=== PATIENT | male | born 1945 ===

== ENCOUNTER 2018-03-06 12:09 | Inpatient (IN) | payer MEDICAID, SELFPAY ==
[2018-03-06 12:09] VITALS: BMI 28.5
--- NOTE | 2018-03-06 12:41 | ED PDOC ---
HPI: Chest Pain Time Seen by Provider: 03/06/18 12:26 Chief Complaint (Nursing): Chest Pain History Per: Patient Onset/Duration Of Symptoms: Days (2) Current Symptoms Are (Timing): Intermittent Episodes Severity: Mild Additional Complaint(s): Chest pain assoc with hemoptysis since yesterday. Denies fever or SOB. No leg pain or swelling. Neuroendocrine Ca of vocal cords. Denies sore throat or difficulty swallowing. Vocal cord tumor resected but no chemo or radiation. 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) - Family History Family History: States: Unknown Family Hx - Home Medications Home Medications: Ambulatory Orders Medication Instructions Recorded Aspirin [Adult Low Dose Aspirin EC] 81 mg PO DAILY 08/19/16 Travoprost [Travatan Z] 1 drop OS HS 08/19/16 amLODIPine [Norvasc] 5 mg PO HS 08/19/16 - Allergies Allergies/Adverse Reactions: Allergies Allergy/AdvReac Type Severity Reaction Status Date / Time No Known Allergies Allergy Verified 08/19/16 07:33 Review of Systems ROS Statement: Except As Marked, All Systems Reviewed And Found Negative Constitutional: Negative for: Fever Cardiovascular: Positive for: Chest Pain Respiratory: Positive for: Cough, Hemoptysis. Negative for: Shortness of Breath Musculoskeletal: Negative for: Leg Pain Physical Exam - Reviewed Nursing Documentation Reviewed: Yes Vital Signs Reviewed: Yes - Physical Exam Appears: Positive for: Non-toxic, No Acute Distress Head Exam: Positive for: ATRAUMATIC, NORMAL INSPECTION, NORMOCEPHALIC Skin: Positive for: Normal Color, Warm, DRY Eye Exam: Positive for: EOMI, Normal appearance, PERRL ENT: Positive for: Normal ENT Inspection, Other (Throat no swelling or bleeding) Neck: Positive for: Normal, Painless ROM Cardiovascular/Chest: Positive for: Regular Rate, Rhythm Respiratory: Positive for: CNT, Normal Breath Sounds Gastrointestinal/Abdominal: Positive for: Normal Exam, Soft Back: Positive for: Normal Inspection Extremity: Positive for: Normal ROM Neurologic/Psych: Positive for: Alert, Oriented - Laboratory Results Result Diagrams: 03/06/18 13:06 03/06/18 13:06 - ECG O2 Sat by Pulse Oximetry: 96 Medical Decision Making Medical Decision Making: Discussed with Dr. Elmore Navigation Officer. Recommends admission as pt is at risk for ruture of tracheal mass, has already had hemoptysis. Will schedule for bronchoscopy thursday. Disposition - Clinical Impression Clinical Impression: Tracheal mass - Patient ED Disposition Is Patient to be Admitted: Yes - Disposition Disposition Time: 16:06 Condition: FAIR Forms: [employer] ([place]) - Pt Status Changed To: Hospital Disposition Of: Inpatient - Admit Certification Admit to Inpatient:: After my assessment, the patient will require hospitalization for at least two midnights. This is because of the severity of symptoms shown, intensity of services needed, and/or the medical risk in this patient being treated as an outpatient. - POA Present On Arrival: None
[2018-03-06 13:22] LABS: BASO # 0.1 K/uL (0.0-0.2); BASO % 0.8 % (0.0-2.0); EOS # 0.2 K/uL (0.0-0.7); EOS % 1.8 % (0.0-4.0); HEMOGLOBIN 14.4 g/dL (12.0-18.0); LYMPH # 2.1 K/uL (1.0-4.3); LYMPH % 20.4 % (20.0-40.0); MEAN CELL VOLUME 89.6 fl (80.0-94.0); MEAN CORPUSCULAR HEMOGLOBIN 29.7 pg (27.0-31.0); MEAN CORPUSCULAR HGB CONC 33.1 g/dL (33.0-37.0); MEAN PLATELET VOLUME 9.5 fl (7.2-11.7); MONO # 0.9 K/uL (0.0-0.8); MONO % 8.7 % (0.0-10.0); NEUT # 6.9 K/uL (1.8-7.0); NEUT % 68.3 % (50.0-75.0); RBC 4.84 Mil/uL (4.40-5.90); RED CELL DISTRIBUTION WIDTH 14.5 % (11.5-14.5); WHITE BLOOD COUNT 10.1 K/uL (4.8-10.8)
[2018-03-06 13:31] LABS: ALB/GLOB RATIO 1.1 (1.0-2.1); ALT/SGPT 22 U/L (21-72); AST/SGOT 19 U/L (17-59); BLOOD UREA NITROGEN 19 mg/dl (9-20); CALCIUM 8.9 mg/dL (8.4-10.2); GFR AFRICAN-AMERICAN > 60; GFR NON-AFRICAN AMERICAN > 60
[2018-03-06 13:33] LABS: INR 1.1 (0.9-1.2)
[2018-03-06] MEDS ORDERED: Iodixanol 320 MG/ML 100 ML BOTTLE IV ONE (14:30)
--- NOTE | 2018-03-06 15:41 | CT ---
PROCEDURE: CT Chest with contrast (Pulmonary Angiogram) HISTORY: hemoptysis vocal cord Ca COMPARISON: None available. 07/02/2016 TECHNIQUE: Axial computed tomography images were obtained of the chest in the pulmonary arterial phase of enhancement. Coronal and sagittal reformatted images were created and reviewed. Intravenous contrast dose: Radiation dose: Total exam DLP = mGy-cm. This CT exam was performed using one or more of the following dose reduction techniques: Automated exposure control, adjustment of the mA and/or kV according to patient size, and/or use of iterative reconstruction technique. FINDINGS: PULMONARY ARTERIES: Unremarkable. No pulmonary embolism. AORTA: No acute findings. No thoracic aortic aneurysm. LUNGS: 3 millimeter juxtapleural nodule along the right upper lobe, unchanged. . No mass or pulmonary consolidation. PLEURAL SPACES: Unremarkable. No effusion or pneuomothorax. HEART: Unremarkable. No cardiomegaly. No significant pericardial effusion. LYMPH NODES: No lymphadenopathy. 12 millimeter mass along the anterior wall of the trachea possibly representing a tracheal polyp or neoplasm; recommend correlation with bronchoscopy. BONES, CHEST WALL: Unremarkable. No fracture or destructive lesion OTHER FINDINGS: 12 millimeter are IMPRESSION: 12 millimeter mass along the anterior wall of the trachea possibly representing a tracheal polyp or neoplasm; recommend correlation with bronchoscopy.
--- NOTE | 2018-03-06 16:40 | CP.PCM.HP ---
History of Present Illness - History of Present Illness History of Present Illness: 72 yo ,m, PMhx/o Neuroendocrine vocal cords Ca s/p resection 5 years ago w/o chemo or radiotherapy in [facility], HTN, BPH, HLD presents c/o one episode of hemoptysis started yesterday noticed after persistent cough associated with central chest pain that lasted 5 minutes. . Patient spitted out small amount red blood and a clot. He reports 4 episodes of mild hemoptysis during the last month and reports a chronic dry cough intermittent for the last 5 months. Patient denies fever, SOB, n,v,d abd pain, dysuria, hematuria, fatigue, weight loss, anorexia. Patient reports that ENT in [facility] only recommended surgery for vocal cord tumor and not chemo or radiotherapy. Patient reports he was seen by ENT in [place] 2 years ago and was told to have f/u every year but he did not go. Patient seen in clinic 09/[address] Blanco and referred to [facility] but patient did not go. On evaluation in ED patient in not acute distress, not active bleeding, reports hemoptysis and chest pain was yesterday and it subsided. PMD: [facility]. Dr Blanco. Last seen 09/2017 PMH: Neuroendocrine vocal cords Ca s/p resection 5 years ago w/o chemo or radiotherapy in [facility], HTN, BPH, HLD Allergies: NKDA Meds: Amlodipine 5 mg daily. Travatan eye drops. (Atorvastatin 20 daily, Tamsulosin 0.4 mg reports not taking) refill given 09/2017 PSurghx: Vocald Cord CA resection PSHX: former smoker x 20 years 2 PPD. Quit 10 years ago. Denies rect drugs, ETOH Code status: full code ED Course Vitals: normal Labs: CBC, CMP normal Imaging: CXR: no infiltrates, pneumothorax. CT Chest: 12 mm mass along the anterior wall of the trachea possible representing a tracheal polyp or neoplasm. 3 mm RUL nodule, no mass, no consolidation. No PE. Recommend correlation with bronchoscopy. -D/w pulmonology Dr Elmore. Will have bronchoscopy on Thursday EKG: sinus tomas, sinus arrhtymia. HR: 53 Meds: None Present on Admission - Present on Admission Any Indicators Present on Admission: No History of DVT/PE: No History of Uncontrolled Diabetes: No Urinary Catheter: No Decubitus Ulcer Present: No Review of Systems - Review of Systems All systems: reviewed and no additional remarkable complaints except - Cardiovascular Cardiovascular: Chest Pain - Gastrointestinal Gastrointestinal: As Per HPI - Neurological Neurological: As Per HPI Past Patient History - Past Medical History & Family History Past Medical History?: Yes - Past Social History Smoking Status: Former Smoker - CARDIAC Hx Cardiac Disorders: Yes - PULMONARY Hx Respiratory Disorders: No - NEUROLOGICAL Hx Neurological Disorder: No - HEENT Hx HEENT Problems: No - RENAL Hx Chronic Kidney Disease: No - ENDOCRINE/METABOLIC Hx Endocrine Disorders: Yes - HEMATOLOGICAL/ONCOLOGICAL Hx Blood Disorders: No - INTEGUMENTARY Hx Dermatological Problems: No - MUSCULOSKELETAL/RHEUMATOLOGICAL Hx Musculoskeletal Disorders: No - GASTROINTESTINAL Hx Constipation: Yes - GENITOURINARY/GYNECOLOGICAL Hx Genitourinary Disorders: No - PSYCHIATRIC Hx Psychophysiologic Disorder: No - SURGICAL HISTORY Other/Comment: cardiac cath. Laryngeal bx 2013 - ANESTHESIA Hx Anesthesia: Yes Hx Anesthesia Reactions: No Hx Malignant Hyperthermia: No Meds Allergies/Adverse Reactions: Allergies Allergy/AdvReac Type Severity Reaction Status Date / Time No Known Allergies Allergy Verified 08/19/16 07:33 Physical Exam - Constitutional Appears: Non-toxic, No Acute Distress - Head Exam Head Exam: NORMAL INSPECTION, NORMOCEPHALIC - Eye Exam Eye Exam: Normal appearance, PERRL - ENT Exam ENT Exam: Mucous Membranes Moist, Normal Oropharynx - Neck Exam Neck exam: Positive for: Normal Inspection. Negative for: Lymphadenopathy, Thyromegaly - Respiratory Exam Respiratory Exam: Clear to Auscultation Bilateral. absent: Rales, Rhonchi, Wheezes - Cardiovascular Exam Cardiovascular Exam: REGULAR RHYTHM, +S1, +S2 - GI/Abdominal Exam GI & Abdominal Exam: Normal Bowel Sounds, Soft. absent: Tenderness - Extremities Exam Extremities exam: Positive for: normal inspection. Negative for: pedal edema - Back Exam Back exam: NORMAL INSPECTION - Neurological Exam Neurological exam: Alert, Oriented x3 - Psychiatric Exam Psychiatric exam: Normal Affect, Normal Mood - Skin Skin Exam: Intact Results - Vital Signs Recent Vital Signs: Last Vital Signs Temp 98.6 F 03/06/18 12:16 Pulse 60 03/06/18 12:25 Resp 18 03/06/18 12:16 BP 118/82 03/06/18 16:13 Pulse Ox 96 03/06/18 16:06 - Labs Result Diagrams: 03/06/18 13:06 03/06/18 13:06 Labs: Laboratory Results - last 24 hr 03/06/18 03/06/18 03/06/18 13:06 13:06 13:06 WBC 10.1 RBC 4.84 Hgb 14.4 Hct 43.4 MCV 89.6 MCH 29.7 MCHC 33.1 RDW 14.5 Plt Count 208 MPV 9.5 Neut % (Auto) 68.3 Lymph % (Auto) 20.4 [place] % (Auto) 8.7 Eos % (Auto) 1.8 Baso % (Auto) 0.8 Neut # (Auto) 6.9 Lymph # (Auto) 2.1 [place] # (Auto) 0.9 H Eos # (Auto) 0.2 Baso # (Auto) 0.1 PT 13.0 INR 1.1 Sodium 142 Potassium 4.3 Chloride 105 Carbon Dioxide 23 Anion Gap 18 BUN 19 Creatinine 1.1 Est GFR ( Amer) > 60 Est GFR (Non-Af Amer) > 60 Random Glucose 90 Calcium 8.9 Total Bilirubin 0.6 AST 19 ALT 22 Alkaline Phosphatase 77 Total Protein 7.6 Albumin 4.0 Globulin 3.6 Albumin/Globulin Ratio 1.1 Assessment & Plan - Assessment and Plan (Free Text) Plan: 72 yo ,m, PMhx/o Neuroendocrine vocal cords Ca s/p resection 5 years ago w/o chemo or radiotherapy in [facility], HTN, BPH, HLD admitted for Hemoptysis, tracheal mass. 1) Hemoptysis -secondary to tracheal mass in patient with PMhx/o vocal cord Ca -reports 4 episodes of hemoptysis in 1 month -labs normal, no anemia, troponin neg -CXR: no infiltrates, pneumothorax Chest CT: 12 mm mass along the anterior wall of the trachea possible representing a tracheal polyp or neoplasm. 3 mm RUL nodule, no mass, no consolidation. No PE. Recommend correlation with bronchoscopy. -D/w pulmonology Dr Elmore. Will have bronchoscopy on Thursday -Hold Aspirin. -PPD ordered in [facility] 09/2017 to r/o TB.patient did not go for reading 2) Tracheal mass -on patient with hx/o vocal cord Ca - Chest CT: 12 mm mass along the anterior wall of the trachea possible representing a tracheal polyp or neoplasm -D/w pulmonology Dr Elmore. Will have bronchoscopy on Thursday 3) Chest pain -only associated with cough and hemoptysis yesterday -asymptomatic in ED -to r/o PE -CT chest: negative for PE -troponin x 1 neg -if chest pain repeats will consider EKG and troponin 4) HTN -controlled c/w home Amlodipine 5 mg daily 5) HLD Last lipid profile reviewed -no taking statin now. -will restart Lipitor 20 mg daily 6) BPH -nocturia 2-3 times day -not taking flomax now -will restart flomax 0,4 mg HS 7) DVT prophylaxis -SCD. hemoptysis. For bronchoscopy on Thursday .
[2018-03-06] MEDS: Latanoprost 0.005% Opht SOUTION OS SCH ×2 (21:14→21:19)
--- NOTE | 2018-03-07 07:38 | RAD ---
HISTORY: chest pain hemoptysis COMPARISON: No prior. TECHNIQUE: Chest PA and lateral FINDINGS: LUNGS: No active pulmonary disease. PLEURA: No significant pleural effusion identified. No pneumothorax apparent. CARDIOVASCULAR: Normal. OSSEOUS STRUCTURES: No significant abnormalities. VISUALIZED UPPER ABDOMEN: Normal. OTHER FINDINGS: None. IMPRESSION: No active disease.
[2018-03-07 10:48] LABS: HEMOGLOBIN 14.5 g/dL (12.0-18.0); MEAN CELL VOLUME 89.1 fl (80.0-94.0); MEAN CORPUSCULAR HEMOGLOBIN 29.8 pg (27.0-31.0); MEAN CORPUSCULAR HGB CONC 33.5 g/dL (33.0-37.0); RBC 4.87 Mil/uL (4.40-5.90); RED CELL DISTRIBUTION WIDTH 14.5 % (11.5-14.5)
--- NOTE | 2018-03-07 13:32 | CP.PCM.PN ---
Subjective - Date & Time of Evaluation Date of Evaluation: 03/07/18 Time of Evaluation: 10:29 - Subjective Subjective: Patient seen and examined with attending at bedside. Patient states he feels well. No acute events overnight except for 1 episode of dark black stool. Patient states this has happened once before 15 days ago, that resolved spontaneously. Patient states cough has improved and no hemoptysis reported. Denies chest pain, sob, palpitations, abdominal pain, n/v/c. No other complaints at this time. Pending bronchoscopy for evaluation of tracheal mass tomorrow. Objective - Vital Signs/Intake and Output Vital Signs (last 24 hours): Temp Pulse Resp BP Pulse Ox 97.6 F 82 18 110/60 98 03/07/18 13:00 03/07/18 13:00 03/07/18 13:00 03/07/18 13:00 03/07/18 13:00 - Medications Medications: Current Medications Acetaminophen (Tylenol 325mg Tab) 650 mg PO Q6 PRN PRN Reason: Pain, Mild (1-3) Acetaminophen (Tylenol 325mg Tab) 650 mg PO Q6 PRN PRN Reason: Fever >100.4 F Amlodipine Besylate (Norvasc) 5 mg PO HS [facility] Last Admin: 03/06/18 21:13 Dose: 5 mg Atorvastatin Calcium (Lipitor) 20 mg PO HS [facility] Last Admin: 03/06/18 21:13 Dose: 20 mg Famotidine (Pepcid) 20 mg PO DAILY SANJEEV Latanoprost (Xalatan Opht) 1 drop OS HS [facility] Last Admin: 03/06/18 21:19 Dose: Not Given - Labs Labs: 03/07/18 10:05 03/06/18 13:06 PT 13.0 Seconds (9.8-13.1) 03/06/18 13:06 INR 1.1 (0.9-1.2) 03/06/18 13:06 - Constitutional Appears: Well, Non-toxic, No Acute Distress - Head Exam Head Exam: ATRAUMATIC, NORMAL INSPECTION, NORMOCEPHALIC - Eye Exam Eye Exam: Normal appearance - ENT Exam ENT Exam: Mucous Membranes Moist - Neck Exam Neck Exam: Normal Inspection - Respiratory Exam Respiratory Exam: Clear to Ausculation Bilateral, NORMAL BREATHING PATTERN. absent: Rales, Rhonchi, Wheezes - Cardiovascular Exam Cardiovascular Exam: REGULAR RHYTHM, +S1, +S2. absent: Murmur - GI/Abdominal Exam GI & Abdominal Exam: Soft, Normal Bowel Sounds. 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 1) Hemoptysis -secondary to tracheal mass in patient with PMhx/o vocal cord Ca -reported 4 episodes of hemoptysis in 1 month -labs normal, no anemia -CXR: no infiltrates, pneumothorax Chest CT: 12 mm mass along the anterior wall of the trachea possible representing a tracheal polyp or neoplasm. 3 mm RUL nodule, no mass, no consolidation. No PE. Recommend correlation with bronchoscopy. -D/w pulmonology Dr Elmore. Will have bronchoscopy on Thursday -Hold Aspirin. -PPD ordered in [facility] 09/2017 to r/o TB.patient did not go for reading -No episodes since admission 2) Tracheal mass -h/o vocal cord Ca s/p resection 5 years ago w/o chemo or radiotherapy -was to f/u with ENT yearly, has not done so in 2 yrs -Chest CT: 12 mm mass along the anterior wall of the trachea possible representing a tracheal polyp or neoplasm -D/w pulmonology Dr Elmore. Will have bronchoscopy on Thursday 3) Melena -x1 episode this am and 1 episode 15 days ago -with hemoptysis episodes in the past month -labs unremarkable, no drop in hgb -will continue to monitor as this may be due to hemoptysis/swallowing blood -will consider GI consult if signs/symptoms worsen 4) Chest pain -Resolved -only associated with cough and hemoptysis yesterday -CT chest: negative for PE -troponin x 1 neg -if chest pain repeats will consider EKG and troponin 5) HTN -controlled c/w home Amlodipine 5 mg daily 6) HLD Last lipid profile reviewed -c/w Lipitor 20 mg daily 7) BPH -symptomatic with nocturia -c/w flomax 0,4 mg HS 8) DVT prophylaxis -SCD due to bronchoscopy on Thursday
[2018-03-07] MEDS ORDERED: Promethazine/Cod 6.25mg-10mg/5ml Syr UD PO PRN (15:11)
[2018-03-07 15:27] LABS: ABG ALLEN TEST YES; ARTERIAL BLOOD GAS HCO3 24.4 mmol/L (21-28); ARTERIAL BLOOD GAS HEMOGLOBIN 14.3 g/dL (11.7-17.4); ARTERIAL BLOOD GAS O2 CAPACITY 19.7 mL/dL (16-24); ARTERIAL BLOOD GAS O2 CONTENT 19.1 ML/dL (15-23); ARTERIAL BLOOD GAS O2 SAT 96.9 % (95-98); ARTERIAL BLOOD GAS PCO2 35 mm/Hg (35-45); ARTERIAL BLOOD GAS PH 7.43 (7.35-7.45); ARTERIAL BLOOD GAS PO2 82 mm/Hg (80-100); ARTERIAL BLOOD GAS TCO2 24.3 mmol/L (22-28)
--- NOTE | 2018-03-07 16:25 | CP.PCM.CON ---
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 He is living [facility] for past 4 yrs. Two yrs ago He was seen by ENT in [facility] and was found with no recurrence of vocal cord CA and was told to return every year for f/u but He did not go. Patient with intermittent dry cough for the past 5 months , He was seen in September [address] Pagan, CXR ordered was negative , He was refered to have f/u with ENT [facility] but He did not go. Patient in the past month had 4 episodes of mild hemoptysis with dry cough, He is AD now with one episode of hemoptysis day prior to admission , described as small amount of bright red blood with small clot , associated with persistant cough and central chest pain. Patient denies fever, shortness of breath, dyspnea on exertion, weight loss , nausea ,vomiting ,diarrhea, abdominal pain, hematemesis, He had yesterday one episode of melanotic stools, but today he describes normal BM. He was smoker for 30 years of 1-3 packs per day. He quit smoking 20 years ago. CTA compared with 07-02-16 : no PE , 3mm nodule yuxtapleural along the RUL unchanged , no mass or pulmonary consolidation. No lymphadenopahy , 12mm mass along the anterior wall of the Trachea possibly representing a tracheal polyp or neoplasm. Review of Systems - Constitutional Constitutional: Other (neg) - EENT Eyes: Other (neg) Nose/Mouth/Throat: Other (neg) - Cardiovascular Cardiovascular: Chest Pain - Respiratory Respiratory: Cough Additional comments: hemoptysis - Gastrointestinal Gastrointestinal: Change in Stool Character (one episode of melanotic stool) - Genitourinary Genitourinary: Other (neg) - Reproductive: Male Reproductive:Male: Other (neg) - Musculoskeletal Musculoskeletal: Other (neg) - Integumentary Integumentary: Other (nrg) - Neurological Neurological: Other (nrg) - Psychiatric Psychiatric: Other (nrg) - Endocrine Endocrine: Other (nrg) - Hematologic/Lymphatic Hematologic: Other (neg) Past Patient History - Past Medical History & Family History Past Medical History?: Yes - Past Social History Smoking Status: Former Smoker Home Situation {Lives}: With Family - CARDIAC Hx Cardiac Disorders: Yes Hx Hypercholesterolemia: Yes Hx Hypertension: Yes - PULMONARY Hx Respiratory Disorders: No - NEUROLOGICAL Hx Neurological Disorder: No - HEENT Hx HEENT Problems: No - RENAL Hx Chronic Kidney Disease: No - ENDOCRINE/METABOLIC Hx Endocrine Disorders: Yes Other/Comment: neuroendocrine vocal cord Ca - HEMATOLOGICAL/ONCOLOGICAL Hx Blood Disorders: No Hx AIDS: No Hx Human Immunodeficiency Virus (HIV): No - INTEGUMENTARY Hx Dermatological Problems: No - MUSCULOSKELETAL/RHEUMATOLOGICAL Hx Musculoskeletal Disorders: No Hx Falls: No - GASTROINTESTINAL Hx Gastrointestinal Disorders: Yes Hx Constipation: Yes - GENITOURINARY/GYNECOLOGICAL Hx Genitourinary Disorders: No - PSYCHIATRIC Hx Psychophysiologic Disorder: No Hx Substance Use: No - SURGICAL HISTORY Hx Surgeries: Yes Other/Comment: cardiac cath. Laryngeal bx 2013 - ANESTHESIA Hx Anesthesia: Yes Hx Anesthesia Reactions: No Hx Malignant Hyperthermia: No Meds Allergies/Adverse Reactions: Allergies Allergy/AdvReac Type Severity Reaction Status Date / Time No Known Allergies Allergy Verified 08/19/16 07:33 - Medications Medications: Current Medications Acetaminophen (Tylenol 325mg Tab) 650 mg PO Q6 PRN PRN Reason: Pain, Mild (1-3) Acetaminophen (Tylenol 325mg Tab) 650 mg PO Q6 PRN PRN Reason: Fever >100.4 F Albuterol/Ipratropium (Duoneb 3 Mg/0.5 Mg (3 Ml) Ud) 3 ml INH RQ6 PRN PRN Reason: Shortness of Breath Atorvastatin Calcium (Lipitor) 20 mg PO HS [facility] Last Admin: 03/06/18 21:13 Dose: 20 mg Famotidine (Pepcid) 20 mg PO DAILY SANJEEV Latanoprost (Xalatan Opht) 1 drop OS HS [facility] Last Admin: 03/06/18 21:19 Dose: Not Given Methylprednisolone (Solu-Medrol) 40 mg IVP Q8H SANJEEV Pantoprazole Sodium (Protonix Ec Tab) 40 mg PO DAILY SANJEEV Promethazine HCl/Codeine (Phenergan/Codeine Oral Syrup) 10 ml PO Q6 PRN PRN Reason: Cough Physical Exam - Constitutional Appears: No Acute Distress - Head Exam Head Exam: NORMAL INSPECTION - Eye Exam Eye Exam: PERRL - ENT Exam ENT Exam: Normal Exam - Neck Exam Neck exam: Positive for: Normal Inspection - Respiratory Exam Respiratory Exam: Rhonchi - Cardiovascular Exam Cardiovascular Exam: REGULAR RHYTHM - GI/Abdominal Exam GI & Abdominal Exam: Normal Bowel Sounds - Extremities Exam Extremities exam: Positive for: normal inspection - Back Exam Back exam: NORMAL INSPECTION - Neurological Exam Neurological exam: Alert, CN II-XII Intact, Oriented x3 - Psychiatric Exam Psychiatric exam: Normal Affect - Skin Skin Exam: Warm Results - Vital Signs Recent Vital Signs: Last Vital Signs Temp 97.6 F 03/07/18 13:00 Pulse 82 03/07/18 13:00 Resp 18 03/07/18 13:00 BP 110/60 03/07/18 13:00 Pulse Ox 98 03/07/18 13:00 - Labs Result Diagrams: 03/07/18 10:05 03/06/18 13:06 Labs: Laboratory Results - last 24 hr 03/06/18 03/07/18 03/07/18 16:20 05:24 10:05 WBC 10.0 RBC 4.87 Hgb 14.5 Hct 43.4 MCV 89.1 MCH 29.8 MCHC 33.5 RDW 14.5 Plt Count 211 pCO2 pO2 HCO3 ABG pH ABG Total CO2 ABG O2 Saturation ABG O2 Content ABG Base Excess ABG Hemoglobin ABG Carboxyhemoglobin POC ABG HHb (Measured) ABG Methemoglobin ABG O2 Capacity Deniz Test A-a O2 Difference Hgb O2 Saturation FiO2 Troponin I < 0.0120 TSH 3rd Generation 2.30 03/07/18 15:00 WBC RBC Hgb Hct MCV MCH MCHC RDW Plt Count pCO2 35 pO2 82 HCO3 24.4 ABG pH 7.43 ABG Total CO2 24.3 ABG O2 Saturation 96.9 ABG O2 Content 19.1 ABG Base Excess -0.6 ABG Hemoglobin 14.3 ABG Carboxyhemoglobin 1.0 POC ABG HHb (Measured) 3.0 ABG Methemoglobin 1.2 ABG O2 Capacity 19.7 Deniz Test Yes A-a O2 Difference 24.0 Hgb O2 Saturation 94.8 L FiO2 21.0 Troponin I TSH 3rd Generation Assessment & Plan (1) Tracheal mass Status: Acute (2) Hemoptysis Status: Acute - Assessment and Plan (Free Text) Plan: Patient with bronchospasm , bradycardia , add DuoNeb , Solu Medrol , DC Norvasc , Cardiac consult, ENT consult , Bronchoscopy after resolution of bronchospasm and bradycardia - Date & Time Date: 03/07/18 Time: 13:00
[2018-03-07] MEDS ORDERED: methylPREDNISolone 40 MG in Sodium Chloride 0.9% 50 ML IVP SCH (17:00)
[2018-03-07] MEDS: MethylPREDNISolone 40 mg Vial IVP SCH (18:02)
[2018-03-07] MEDS: Latanoprost 0.005% Opht SOUTION OS SCH (22:25)
[2018-03-08] MEDS: MethylPREDNISolone 40 mg Vial IVP SCH ×3 (00:27→17:24)
--- NOTE | 2018-03-08 07:31 | CP.PCM.PN ---
Subjective - Date & Time of Evaluation Date of Evaluation: 03/08/18 Time of Evaluation: 08:30 - Subjective Subjective: Patient seen and examined this morning with pt's son present at bedside. Patient states he feels well. Patient states he still has blood tinged sputum but improved from previous days. States cough has improved. Pt reports black tarry stool has resolved. Last night pt had normal BM with brown-yellow color. Denies chest pain, sob, palpitations, abdominal pain, n/v/c. No other complaints at this time. Pending bronchoscopy tomorrow for evaluation of tracheal mass. Pt is cleared by supervisor cigar making machine for the procedure. Objective - Vital Signs/Intake and Output Vital Signs (last 24 hours): Temp Pulse Resp BP Pulse Ox 97.8 F 50 L 20 116/60 96 03/08/18 01:00 03/08/18 01:00 03/08/18 01:00 03/08/18 01:00 03/08/18 01:00 - Medications Medications: Current Medications Acetaminophen (Tylenol 325mg Tab) 650 mg PO Q6 PRN PRN Reason: Pain, Mild (1-3) Acetaminophen (Tylenol 325mg Tab) 650 mg PO Q6 PRN PRN Reason: Fever >100.4 F Albuterol/Ipratropium (Duoneb 3 Mg/0.5 Mg (3 Ml) Ud) 3 ml INH RQ6 PRN PRN Reason: Shortness of Breath Atorvastatin Calcium (Lipitor) 20 mg PO HS [facility] Last Admin: 03/07/18 22:26 Dose: 20 mg Famotidine (Pepcid) 20 mg PO DAILY [facility] Latanoprost (Xalatan Opht) 1 drop OS HS [facility] Last Admin: 03/07/18 22:25 Dose: 1 drop Methylprednisolone (Solu-Medrol) 40 mg IVP Q8H [facility] Last Admin: 03/08/18 00:27 Dose: 40 mg Pantoprazole Sodium (Protonix Ec Tab) 40 mg PO DAILY [facility] Promethazine HCl/Codeine (Phenergan/Codeine Oral Syrup) 10 ml PO Q6 PRN PRN Reason: Cough - Labs Labs: 03/07/18 10:05 03/06/18 13:06 PT 13.0 Seconds (9.8-13.1) 03/06/18 13:06 INR 1.1 (0.9-1.2) 03/06/18 13:06 - Additional Findings Additional findings: - Constitutional Appears: Non-toxic, No Acute Distress - Head Exam Head Exam: NORMAL INSPECTION, NORMOCEPHALIC - Eye Exam Eye Exam: Normal appearance, no icterus - ENT Exam ENT Exam: Mucous Membranes Moist - Neck Exam Neck Exam: Normal Inspection - Respiratory Exam Respiratory Exam: Clear to Ausculation Bilateral, NORMAL BREATHING PATTERN. absent: Rales, Rhonchi, Wheezes - Cardiovascular Exam Cardiovascular Exam: REGULAR RHYTHM, +S1, +S2. absent: Murmur - GI/Abdominal Exam GI & Abdominal Exam: Soft, Normal Bowel Sounds. 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 1) Hemoptysis -secondary to tracheal mass in patient with PMhx/o vocal cord Ca -reported 4 episodes of hemoptysis in 1 month -labs normal, no anemia -CXR: no infiltrates, pneumothorax Chest CT: 12 mm mass along the anterior wall of the trachea possible representing a tracheal polyp or neoplasm. 3 mm RUL nodule, no mass, no consolidation. No PE. Recommend correlation with bronchoscopy. -Clinical Transplant Coordinator Dr Elmore on board. Will have bronchoscopy on Thursday. -Hold Aspirin. -PPD ordered in [place] 09/2017 to r/o TB. patient did not go for reading 2) Tracheal mass -h/o vocal cord Ca s/p resection 5 years ago w/o chemo or radiotherapy -was to f/u with ENT yearly, has not done so in 2 yrs -Chest CT: 12 mm mass along the anterior wall of the trachea possible representing a tracheal polyp or neoplasm -f/u ENT consult -bronchoscopy on Thursday 3) Melena resolved -normal bm with yellowish brown color last night. -x1 episode yesterday morning and 1 episode 15 days ago -with hemoptysis episodes in the past month -labs unremarkable, no drop in hgb -will continue to monitor as this may be due to hemoptysis/swallowing blood 4) HTN -controlled c/w home Amlodipine 5 mg daily 5) HLD Last lipid profile reviewed -c/w Lipitor 20 mg daily 6) BPH -symptomatic with nocturia -c/w flomax 0,4 mg HS 7) DVT prophylaxis -SCD due to bronchoscopy on Thursday
--- NOTE | 2018-03-08 08:52 | CP.PCM.CON ---
History of Present Illness - History of Present Illness History of Present Illness: 72 yo ,m, PMhx/o Neuroendocrine vocal cords Ca s/p resection 5 years ago w/o chemo or radiotherapy in [facility], HTN, BPH, HLD presents c/o one episode of hemoptysis after persistent cough Cardiology Consult called for clearance for Bronchoscopy PMD: [facility]. Dr Blanco. Last seen 09/2017 PMH: Neuroendocrine vocal cords Ca s/p resection 5 years ago w/o chemo or radiotherapy in [facility], HTN, BPH, HLD Allergies: NKDA Meds: Amlodipine 5 mg daily. Travatan eye drops. (Atorvastatin 20 daily, Tamsulosin 0.4 mg reports not taking) refill given 09/2017 PSurghx: Vocald Cord CA resection PSHX: former smoker x 20 years 2 PPD. Quit 10 years ago. Denies rect drugs, ETOH EKG: Sinus Bradycardia @ 53 BPM Denies chest pain with exertion no Hx [place] Review of Systems - Review of Systems Systems not reviewed;Unavailable: Acuity of Condition - Respiratory Respiratory: Cough, Hemoptysis Past Patient History - Past Medical History & Family History Past Medical History?: Yes - Past Social History Smoking Status: Former Smoker Home Situation {Lives}: With Family - CARDIAC Hx Cardiac Disorders: Yes Hx Hypercholesterolemia: Yes Hx Hypertension: Yes - PULMONARY Hx Respiratory Disorders: No - NEUROLOGICAL Hx Neurological Disorder: No - HEENT Hx HEENT Problems: No - RENAL Hx Chronic Kidney Disease: No - ENDOCRINE/METABOLIC Hx Endocrine Disorders: Yes Other/Comment: neuroendocrine vocal cord Ca - HEMATOLOGICAL/ONCOLOGICAL Hx Blood Disorders: No Hx AIDS: No Hx Human Immunodeficiency Virus (HIV): No - INTEGUMENTARY Hx Dermatological Problems: No - MUSCULOSKELETAL/RHEUMATOLOGICAL Hx Musculoskeletal Disorders: No Hx Falls: No - GASTROINTESTINAL Hx Gastrointestinal Disorders: Yes Hx Constipation: Yes - GENITOURINARY/GYNECOLOGICAL Hx Genitourinary Disorders: No - PSYCHIATRIC Hx Psychophysiologic Disorder: No Hx Substance Use: No - SURGICAL HISTORY Hx Surgeries: Yes Other/Comment: cardiac cath. Laryngeal bx 2012 - ANESTHESIA Hx Anesthesia: Yes Hx Anesthesia Reactions: No Hx Malignant Hyperthermia: No Meds Allergies/Adverse Reactions: Allergies Allergy/AdvReac Type Severity Reaction Status Date / Time No Known Allergies Allergy Verified 08/19/16 07:33 - Medications Medications: Current Medications Acetaminophen (Tylenol 325mg Tab) 650 mg PO Q6 PRN PRN Reason: Pain, Mild (1-3) Acetaminophen (Tylenol 325mg Tab) 650 mg PO Q6 PRN PRN Reason: Fever >100.4 F Albuterol/Ipratropium (Duoneb 3 Mg/0.5 Mg (3 Ml) Ud) 3 ml INH RQ6 PRN PRN Reason: Shortness of Breath Atorvastatin Calcium (Lipitor) 20 mg PO HS [facility] Last Admin: 03/07/18 22:26 Dose: 20 mg Famotidine (Pepcid) 20 mg PO DAILY [facility] Latanoprost (Xalatan Opht) 1 drop OS HS [facility] Last Admin: 03/07/18 22:25 Dose: 1 drop Methylprednisolone (Solu-Medrol) 40 mg IVP Q8H [facility] Last Admin: 03/08/18 00:27 Dose: 40 mg Pantoprazole Sodium (Protonix Ec Tab) 40 mg PO DAILY [facility] Promethazine HCl/Codeine (Phenergan/Codeine Oral Syrup) 10 ml PO Q6 PRN PRN Reason: Cough Results - Vital Signs Recent Vital Signs: Last Vital Signs Temp 97.8 F 03/08/18 08:00 Pulse 69 03/08/18 08:00 Resp 19 03/08/18 08:00 BP 114/71 03/08/18 08:00 Pulse Ox 95 03/08/18 08:00 - Labs Result Diagrams: 03/07/18 10:05 03/06/18 13:06 Labs: Laboratory Results - last 24 hr 03/07/18 03/07/18 10:05 15:00 WBC 10.0 RBC 4.87 Hgb 14.5 Hct 43.4 MCV 89.1 MCH 29.8 MCHC 33.5 RDW 14.5 Plt Count 211 pCO2 35 pO2 82 HCO3 24.4 ABG pH 7.43 ABG Total CO2 24.3 ABG O2 Saturation 96.9 ABG O2 Content 19.1 ABG Base Excess -0.6 ABG Hemoglobin 14.3 ABG Carboxyhemoglobin 1.0 POC ABG HHb (Measured) 3.0 ABG Methemoglobin 1.2 ABG O2 Capacity 19.7 Deniz Test Yes A-a O2 Difference 24.0 Hgb O2 Saturation 94.8 L FiO2 21.0 Assessment & Plan (1) Hemoptysis Assessment and Plan: The pt is cleared for bronchoscopy Status: Acute (2) Tracheal mass Status: Acute
[2018-03-08] MEDS: Pantoprazole 40 mg EC Tab PO SCH (09:14)
--- NOTE | 2018-03-08 12:56 | CP.PCM.PN ---
Subjective - Date & Time of Evaluation Date of Evaluation: 03/08/18 Time of Evaluation: 11:00 - Subjective Subjective: F/U Tracheal Mass. Cough improved, scant amount of yellowish phlegms, no SOB. Objective - Vital Signs/Intake and Output Vital Signs (last 24 hours): Temp Pulse Resp BP Pulse Ox 97.8 F 69 19 114/71 95 03/08/18 08:00 03/08/18 08:00 03/08/18 08:00 03/08/18 08:00 03/08/18 08:00 - Medications Medications: Current Medications Acetaminophen (Tylenol 325mg Tab) 650 mg PO Q6 PRN PRN Reason: Pain, Mild (1-3) Acetaminophen (Tylenol 325mg Tab) 650 mg PO Q6 PRN PRN Reason: Fever >100.4 F Albuterol/Ipratropium (Duoneb 3 Mg/0.5 Mg (3 Ml) Ud) 3 ml INH RQ6 PRN PRN Reason: Shortness of Breath Atorvastatin Calcium (Lipitor) 20 mg PO HS [facility] Last Admin: 03/07/18 22:26 Dose: 20 mg Famotidine (Pepcid) 20 mg PO DAILY [facility] Last Admin: 03/08/18 09:13 Dose: 20 mg Latanoprost (Xalatan Opht) 1 drop OS HS [facility] Last Admin: 03/07/18 22:25 Dose: 1 drop Methylprednisolone (Solu-Medrol) 40 mg IVP Q8H [facility] Last Admin: 03/08/18 09:14 Dose: 40 mg Pantoprazole Sodium (Protonix Ec Tab) 40 mg PO DAILY [facility] Last Admin: 03/08/18 09:14 Dose: 40 mg Promethazine HCl/Codeine (Phenergan/Codeine Oral Syrup) 10 ml PO Q6 PRN PRN Reason: Cough - Labs Labs: 03/07/18 10:05 03/06/18 13:06 PT 13.0 Seconds (9.8-13.1) 03/06/18 13:06 INR 1.1 (0.9-1.2) 03/06/18 13:06 - Constitutional Appears: No Acute Distress - Head Exam Head Exam: NORMAL INSPECTION - Eye Exam Eye Exam: PERRL - ENT Exam ENT Exam: Normal Exam - Neck Exam Neck Exam: Normal Inspection - Respiratory Exam Respiratory Exam: Rhonchi (few scattered) - Cardiovascular Exam Cardiovascular Exam: REGULAR RHYTHM - GI/Abdominal Exam GI & Abdominal Exam: Soft, Normal Bowel Sounds - Extremities Exam Extremities Exam: Normal Inspection - Back Exam Back Exam: NORMAL INSPECTION - Neurological Exam Neurological Exam: Alert, CN II-XII Intact, Oriented x3 - Psychiatric Exam Psychiatric exam: Normal Affect - Skin Skin Exam: Warm Assessment and Plan (1) Tracheal mass Status: Acute (2) Hemoptysis Status: Acute - Assessment and Plan (Free Text) Plan: F/U ENT consult to assess vocal cord, to have Bronchoscopy on Thursday, there is not open OR for tomorrow.
--- NOTE | 2018-03-08 15:37 | OP ---
PROCEDURE DATE: 03/08/2018 PREOPERATIVE DIAGNOSIS: Possible vocal cord lesion. POSTOPERATIVE DIAGNOSIS: Possible vocal cord lesion. PROCEDURE: Flexible laryngoscopy. SIGNIFICANT FINDINGS: No masses or lesions. DESCRIPTION OF PROCEDURE: The patient was placed in seated position. The nose was injected using Afrin nasal spray. Flexible laryngoscope was inserted into the left nasal cavity, passed the nasopharynx, oropharynx, and hypopharynx. The pharyngeal wall, base of tongue, vallecula, epiglottis, AE fold, false cords, true cords, pyriform sinuses and arytenoids were brought into view, vocal cords were mobile bilaterally. No masses or lesions were noted. The scope was removed. The patient tolerated the procedure well. Gurvinder Guidry MD MTDD
[2018-03-08] MEDS: Albuterol-Ipratrop 3 mg / 0.5 (3 ml) UD INH PRN (18:56)
[2018-03-08] MEDS: Latanoprost 0.005% Opht SOUTION OS SCH (22:51)
[2018-03-09] MEDS: MethylPREDNISolone 40 mg Vial IVP SCH ×3 (00:18→16:13)
[2018-03-09 06:39] LABS: HEMOGLOBIN 14.7 g/dL (12.0-18.0); MEAN CELL VOLUME 89.8 fl (80.0-94.0); MEAN CORPUSCULAR HEMOGLOBIN 29.5 pg (27.0-31.0); MEAN CORPUSCULAR HGB CONC 32.9 g/dL (33.0-37.0); RBC 4.98 Mil/uL (4.40-5.90); RED CELL DISTRIBUTION WIDTH 14.5 % (11.5-14.5); WHITE BLOOD COUNT 20.4 K/uL (4.8-10.8)
--- NOTE | 2018-03-09 07:05 | CP.PCM.PN ---
Subjective - Date & Time of Evaluation Date of Evaluation: 03/09/18 Time of Evaluation: 08:45 - Subjective Subjective: Patient seen and examined this morning. No acute overnight events. Patient states he still has blood tinged sputum but improved from previous days. States cough has improved. Denies chest pain, sob, palpitations, abdominal pain, n/v/ c. Reports normal BM and voiding regularly. No other complaints at this time. Pending bronchoscopy tomorrow for evaluation of tracheal mass. Pt is cleared by chief innovation officer for the procedure. Pt had flexible laryngoscopy yesterday which no mass or lesion. Objective - Vital Signs/Intake and Output Vital Signs (last 24 hours): Temp Pulse Resp BP Pulse Ox 97.7 F 48 L 19 110/62 96 03/09/18 01:00 03/09/18 01:00 03/09/18 01:00 03/09/18 01:00 03/09/18 01:00 - Medications Medications: Current Medications Acetaminophen (Tylenol 325mg Tab) 650 mg PO Q6 PRN PRN Reason: Pain, Mild (1-3) Acetaminophen (Tylenol 325mg Tab) 650 mg PO Q6 PRN PRN Reason: Fever >100.4 F Albuterol/Ipratropium (Duoneb 3 Mg/0.5 Mg (3 Ml) Ud) 3 ml INH RQ6 PRN PRN Reason: Shortness of Breath Last Admin: 03/08/18 18:56 Dose: 3 ml Atorvastatin Calcium (Lipitor) 20 mg PO HS [facility] Last Admin: 03/08/18 22:51 Dose: Not Given Famotidine (Pepcid) 20 mg PO DAILY [facility] Last Admin: 03/08/18 09:13 Dose: 20 mg Latanoprost (Xalatan Opht) 1 drop OS HS [facility] Last Admin: 03/08/18 22:51 Dose: Not Given Methylprednisolone (Solu-Medrol) 40 mg IVP Q8H [facility] Last Admin: 03/09/18 00:18 Dose: 40 mg Pantoprazole Sodium (Protonix Ec Tab) 40 mg PO DAILY [facility] Last Admin: 03/08/18 09:14 Dose: 40 mg Promethazine HCl/Codeine (Phenergan/Codeine Oral Syrup) 10 ml PO Q6 PRN PRN Reason: Cough - Labs Labs: 03/09/18 06:30 03/06/18 13:06 PT 13.0 Seconds (9.8-13.1) 03/06/18 13:06 INR 1.1 (0.9-1.2) 03/06/18 13:06 - Additional Findings Additional findings: - Constitutional Appears: Non-toxic, No Acute Distress - Head Exam Head Exam: NORMAL INSPECTION, NORMOCEPHALIC - Eye Exam Eye Exam: Normal appearance, no icterus - ENT Exam ENT Exam: Mucous Membranes Moist - Neck Exam Neck Exam: Normal Inspection - Respiratory Exam Respiratory Exam: Clear to Auscultation Bilateral, NORMAL BREATHING PATTERN. absent: Rales, Rhonchi, Wheezes - Cardiovascular Exam Cardiovascular Exam: REGULAR RHYTHM, +S1, +S2. absent: Murmur - GI/Abdominal Exam GI & Abdominal Exam: Soft, Normal Bowel Sounds. 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 1) Hemoptysis -secondary to tracheal mass in patient with PMhx/o vocal cord Ca -reported 4 episodes of hemoptysis in 1 month -labs normal, no anemia -CXR: no infiltrates, pneumothorax Chest CT: 12 mm mass along the anterior wall of the trachea possible representing a tracheal polyp or neoplasm. 3 mm RUL nodule, no mass, no consolidation. No PE. Recommend correlation with bronchoscopy. -[employer] Dr Elmore on board. Will have bronchoscopy tomorrow. -Hold Aspirin. -PPD ordered in [facility] 09/2017 to r/o TB. 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 -bronchoscopy on tomorrow 3) Melena resolved -normal bm with yellowish brown color last night. -x1 episode yesterday morning and 1 episode 15 days ago -with hemoptysis episodes in the past month -labs unremarkable, no drop in hgb -will continue to monitor as this may be due to hemoptysis/swallowing blood 4) HTN -controlled c/w home Amlodipine 5 mg daily 5) HLD Last lipid profile reviewed -c/w Lipitor 20 mg daily 6) BPH -symptomatic with nocturia -c/w flomax 0,4 mg HS 7) DVT prophylaxis -SCD due to bronchoscopy tomorrow
[2018-03-09 07:10] LABS: ALB/GLOB RATIO 1.2 (1.0-2.1); ALBUMIN 4.3 g/dL (3.5-5.0); ALT/SGPT 16 U/L (21-72); AST/SGOT 23 U/L (17-59); BLOOD UREA NITROGEN 30 mg/dl (9-20); CALCIUM 9.4 mg/dL (8.4-10.2); GFR AFRICAN-AMERICAN > 60; GFR NON-AFRICAN AMERICAN > 60
[2018-03-09] MEDS: Pantoprazole 40 mg EC Tab PO SCH (08:43)
--- NOTE | 2018-03-09 11:16 | CARD ---
APPROVED REPORT EXAM: Two-dimensional and M-mode echocardiogram with Doppler and color Doppler. Other Information Quality : GoodRhythm : NSR INDICATION Chest Pain 2D DIMENSIONS IVSd0.94 (0.7-1.1cm)LVDd4.90 (3.9-5.9cm) LVOT Diameter2.23 (1.8-2.4cm)PWd1.00 (0.7-1.1cm) IVSs1.13 (0.8-1.2cm)LVDs3.92 (2.5-4.0cm) FS (%) 19.9 %PWs1.13 (0.8-1.2cm) M-Mode DIMENSIONS Left Atrium (MM)4.06 (2.5-4.0cm)IVSd1.32 (0.7-1.1cm) Aortic Root3.26 (2.2-3.7cm)LVDd4.32 (4.0-5.6cm) Aortic Cusp Exc.1.91 (1.5-2.0cm)PWd1.06 (0.7-1.1cm) IVSs1.47 cmFS (%) 35 % LVDs2.79 (2.0-3.8cm)PWs1.76 cm Mitral Valve MV E Qpeatoyh47.5cm/sMV DECEL [id number] A Tgwtldzp51.6cm/s MV OQM06llD/A ratio0.9MVA (PHT)2.54cm2 TDI Lateral E' Peak V7.41cm/sMedial E' Peak V4.73cm/sE/Lateral E'7.1 E/Medial E'11.1 Pulmonary Valve PV Peak Aedrnxyp52.0cm/s LEFT VENTRICLE The left ventricle is normal size. There is normal left ventricular wall thickness. Left ventricle systolic function is borderline. The Ejection Fraction is 45-50%. There is normal LV segmental wall motion. The left ventricular diastolic function is normal. RIGHT VENTRICLE The right ventricle is normal size. The right ventricular systolic function is normal. ATRIA The left atrium size is normal. The right atrium size is normal. AORTIC VALVE The aortic valve is normal in structure. No aortic regurgitation is present. There is no aortic valvular stenosis. MITRAL VALVE The mitral valve is normal in structure. There is no mitral valve stenosis. There is no mitral valve regurgitation noted. TRICUSPID VALVE The tricuspid valve is normal in structure. There is no tricuspid valve regurgitation noted. There is no tricuspid valve stenosis. PULMONIC VALVE The pulmonary valve is normal in structure. There is no pulmonic valvular regurgitation. There is no pulmonic valvular stenosis. GREAT VESSELS The aortic root is normal in size. The IVC is normal in size and collapses >50% with inspiration. PERICARDIAL EFFUSION The pericardium appears normal. <Conclusion> The left ventricle is normal size. Left ventricle systolic function is borderline. The Ejection Fraction is 45-50%.
--- NOTE | 2018-03-09 13:12 | CP.PCM.PN ---
Subjective - Date & Time of Evaluation Date of Evaluation: 03/09/18 Time of Evaluation: 10:10 - Subjective Subjective: F/U Tracheal mass. Pt with occasional dry cough, at times with scanty yellowish phlegms. Objective - Vital Signs/Intake and Output Vital Signs (last 24 hours): Temp Pulse Resp BP Pulse Ox 98 F 63 20 103/60 98 03/09/18 08:34 03/09/18 08:34 03/09/18 08:34 03/09/18 08:34 03/09/18 08:34 - Medications Medications: Current Medications Acetaminophen (Tylenol 325mg Tab) 650 mg PO Q6 PRN PRN Reason: Pain, Mild (1-3) Acetaminophen (Tylenol 325mg Tab) 650 mg PO Q6 PRN PRN Reason: Fever >100.4 F Albuterol/Ipratropium (Duoneb 3 Mg/0.5 Mg (3 Ml) Ud) 3 ml INH RQ6 PRN PRN Reason: Shortness of Breath Last Admin: 03/08/18 18:56 Dose: 3 ml Atorvastatin Calcium (Lipitor) 20 mg PO HS [facility] Last Admin: 03/08/18 22:51 Dose: Not Given Famotidine (Pepcid) 20 mg PO DAILY [facility] Last Admin: 03/09/18 08:43 Dose: 20 mg Latanoprost (Xalatan Opht) 1 drop OS HS [facility] Last Admin: 03/08/18 22:51 Dose: Not Given Methylprednisolone (Solu-Medrol) 40 mg IVP Q8H [facility] Last Admin: 03/09/18 08:43 Dose: 40 mg Pantoprazole Sodium (Protonix Ec Tab) 40 mg PO DAILY [facility] Last Admin: 03/09/18 08:43 Dose: 40 mg Promethazine HCl/Codeine (Phenergan/Codeine Oral Syrup) 10 ml PO Q6 PRN PRN Reason: Cough - Labs Labs: 03/09/18 06:30 03/09/18 06:30 PT 13.0 Seconds (9.8-13.1) 03/06/18 13:06 INR 1.1 (0.9-1.2) 03/06/18 13:06 - Constitutional Appears: No Acute Distress - Head Exam Head Exam: NORMAL INSPECTION - Eye Exam Eye Exam: Normal appearance - ENT Exam ENT Exam: Normal Exam - Neck Exam Neck Exam: Normal Inspection - Respiratory Exam Respiratory Exam: Decreased Breath Sounds (slightly decreased at bases) - Cardiovascular Exam Cardiovascular Exam: REGULAR RHYTHM - GI/Abdominal Exam GI & Abdominal Exam: Soft, Normal Bowel Sounds - Extremities Exam Extremities Exam: Normal Inspection - Back Exam Back Exam: NORMAL INSPECTION - Neurological Exam Neurological Exam: Alert, CN II-XII Intact, Oriented x3 - Psychiatric Exam Psychiatric exam: Normal Mood - Skin Skin Exam: Warm Assessment and Plan (1) Tracheal mass Status: Acute (2) Hemoptysis Status: Acute - Assessment and Plan (Free Text) Plan: Pt was seen by device sales consultant, no vocal cord pathology, cleared by Cardiology for Bronchoscopy tomorrow.
[2018-03-09] MEDS: Albuterol-Ipratrop 3 mg / 0.5 (3 ml) UD INH PRN (19:50)
[2018-03-09] MEDS: Latanoprost 0.005% Opht SOUTION OS SCH ×2 (21:17→21:19)
[2018-03-10] MEDS: MethylPREDNISolone 40 mg Vial IVP SCH ×3 (00:24→17:16)
[2018-03-10] MEDS: Lactated Ringer's 1,000 ML IV SCH ×3 (00:24→17:13)
--- NOTE | 2018-03-10 06:43 | CP.PCM.PN ---
Subjective - Date & Time of Evaluation Date of Evaluation: 03/10/18 Time of Evaluation: 08:35 - Subjective Subjective: Patient seen and examined this morning. No acute overnight events. States cough has improved and denies any blood tinged sputum last night. Denies chest pain, sob, palpitations, abdominal pain, n/v/c. Last BM was 2 days ago and voiding regularly. NPO since midnight. Pt is to have bronchoscopy today. Objective - Vital Signs/Intake and Output Vital Signs (last 24 hours): Temp Pulse Resp BP Pulse Ox 97.7 F 73 19 101/65 96 03/10/18 00:00 03/10/18 00:00 03/10/18 00:00 03/10/18 00:00 03/10/18 00:00 - Medications Medications: Current Medications Acetaminophen (Tylenol 325mg Tab) 650 mg PO Q6 PRN PRN Reason: Pain, Mild (1-3) Acetaminophen (Tylenol 325mg Tab) 650 mg PO Q6 PRN PRN Reason: Fever >100.4 F Albuterol/Ipratropium (Duoneb 3 Mg/0.5 Mg (3 Ml) Ud) 3 ml INH RQ6 PRN PRN Reason: Shortness of Breath Last Admin: 03/09/18 19:50 Dose: 3 ml Atorvastatin Calcium (Lipitor) 20 mg PO HS [facility] Last Admin: 03/09/18 21:17 Dose: 20 mg Famotidine (Pepcid) 20 mg PO DAILY [facility] Last Admin: 03/09/18 08:43 Dose: 20 mg Lactated Ringer's (Lactated Ringer's) 1,000 mls @ 84 mls/hr IV .[id number] [facility] Last Admin: 03/10/18 05:36 Dose: Not Given Latanoprost (Xalatan Opht) 1 drop OS HS [facility] Last Admin: 03/09/18 21:19 Dose: Not Given Methylprednisolone (Solu-Medrol) 40 mg IVP Q8H [facility] Last Admin: 03/10/18 00:24 Dose: 40 mg Pantoprazole Sodium (Protonix Ec Tab) 40 mg PO DAILY [facility] Last Admin: 03/09/18 08:43 Dose: 40 mg Promethazine HCl/Codeine (Phenergan/Codeine Oral Syrup) 10 ml PO Q6 PRN PRN Reason: Cough - Labs Labs: 03/09/18 06:30 03/09/18 06:30 PT 13.0 Seconds (9.8-13.1) 03/06/18 13:06 INR 1.1 (0.9-1.2) 03/06/18 13:06 - Additional Findings Additional findings: - Constitutional Appears: Non-toxic, No Acute Distress - Head Exam Head Exam: NORMAL INSPECTION, - Eye Exam Eye Exam: Normal appearance - ENT Exam ENT Exam: Mucous Membranes Moist - Neck Exam Neck Exam: Normal Inspection - Respiratory Exam Respiratory Exam: Clear to Auscultation Bilateral, NORMAL BREATHING PATTERN. absent: Rales, Rhonchi, Wheezes - Cardiovascular Exam Cardiovascular Exam: REGULAR RHYTHM, +S1, +S2. absent: Murmur - GI/Abdominal Exam GI & Abdominal Exam: Soft, Normal Bowel Sounds. 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 1) Hemoptysis -secondary to tracheal mass in patient with PMhx/o vocal cord Ca -reported 4 episodes of hemoptysis in 1 month -labs normal, no anemia -CXR: no infiltrates, pneumothorax Chest CT: 12 mm mass along the anterior wall of the trachea possible representing a tracheal polyp or neoplasm. 3 mm RUL nodule, no mass, no consolidation. No PE. Recommend correlation with bronchoscopy. -Process Architect Dr Elmore on board. -Hold Aspirin. -PPD ordered in [place] 09/2017 to r/o TB. patient did not go for reading -f/u quantiferon, asperfillus ab and fungitell assay -Bronchoscopy to be done today 2) Tracheal mass -h/o vocal cord Ca s/p resection 5 years ago w/o chemo or radiotherapy -was to f/u with ENT yearly, has not done so in 2 yrs -Chest CT: 12 mm mass along the anterior wall of the trachea possible representing a tracheal polyp or neoplasm -ENT consult consult appreciated; Had flexible laryngoscopy yesterday which showed no mass/lesion. -Bronchoscopy today 3) Melena resolved -normal bm (2 days ago) with yellowish brown color -with hemoptysis episodes in the past month -labs unremarkable, no drop in hgb -will continue to monitor as this may be due to hemoptysis/swallowing blood 4) HTN -controlled c/w home Amlodipine 5 mg daily 5) HLD Last lipid profile reviewed -c/w Lipitor 20 mg daily 6) BPH -symptomatic with nocturia -c/w flomax 0,4 mg HS 7) DVT prophylaxis -SCD due to bronchoscopy today 8)Code status -Full code
[2018-03-10 06:50] LABS: HEMOGLOBIN 14.7 g/dL (12.0-18.0); MEAN CELL VOLUME 89.6 fl (80.0-94.0); MEAN CORPUSCULAR HEMOGLOBIN 29.7 pg (27.0-31.0); MEAN CORPUSCULAR HGB CONC 33.2 g/dL (33.0-37.0); RBC 4.94 Mil/uL (4.40-5.90); RED CELL DISTRIBUTION WIDTH 14.8 % (11.5-14.5)
[2018-03-10 07:04] LABS: ALB/GLOB RATIO 1.1 (1.0-2.1); ALBUMIN 4.1 g/dL (3.5-5.0); ALT/SGPT 23 U/L (21-72); AST/SGOT 22 U/L (17-59); BLOOD UREA NITROGEN 32 mg/dl (9-20); CALCIUM 9.3 mg/dL (8.4-10.2); GFR AFRICAN-AMERICAN > 60; GFR NON-AFRICAN AMERICAN > 60
[2018-03-10] MEDS: Pantoprazole 40 mg EC Tab PO SCH (09:25)
[2018-03-10] MEDS ORDERED: Lidocaine 2% Inj (20ml) ONE ×2 (10:29→10:33)
[2018-03-10] MEDS ORDERED: Lidocaine 2% Jelly (5 ml) TOP ONE (10:33)
[2018-03-10] MEDS ORDERED: EPINEPHrine 1 mg/ml (1:1000) Inj ONE (10:34)
--- NOTE | 2018-03-10 13:32 | CP.PCM.CON ---
History of Present Illness - History of Present Illness History of Present Illness: Vascular Surgery Consult for Dr. Rosales 72M seen at bedside with his son complaining of persistent cough x 2 months with hemoptysis x 4 days. Patient complains that his throat is sore as a result of the coughing and denies any chest pain or shortness of breath. Patient states that five years ago he had surgery in [facility] to remove a cancerous mass from his throat and has been following up with his local doctor annually. Patient also states that four days ago he noticed dark, tarry stool that has since resolved. He denies any irregularity in his urination or bowel movements. He denies any other complaints at this time. Denies any recent N/V/F/C/CP/SOB/ D. PMHx: Throat CA, HTN Meds: Amlodipine 5 mg qd All: NKDA PSH: Excision of cancerous mass in throat FHx: Non-contributory SHx: 60 pack year smoker, denies EtOH, denies other drugs ROS: unremarkable Review of Systems - Review of Systems All systems: reviewed and no additional remarkable complaints except Review of Systems: as per HPI Past Patient History - Past Medical History & Family History Past Medical History?: Yes - Past Social History Smoking Status: Former Smoker Home Situation {Lives}: With Family - CARDIAC Hx Cardiac Disorders: Yes Hx Hypercholesterolemia: Yes Hx Hypertension: Yes - PULMONARY Hx Respiratory Disorders: No - NEUROLOGICAL Hx Neurological Disorder: No - HEENT Hx HEENT Problems: No - RENAL Hx Chronic Kidney Disease: No - ENDOCRINE/METABOLIC Hx Endocrine Disorders: Yes Other/Comment: neuroendocrine vocal cord Ca - HEMATOLOGICAL/ONCOLOGICAL Hx Blood Disorders: No Hx AIDS: No Hx Human Immunodeficiency Virus (HIV): No - INTEGUMENTARY Hx Dermatological Problems: No - MUSCULOSKELETAL/RHEUMATOLOGICAL Hx Musculoskeletal Disorders: No Hx Falls: No - GASTROINTESTINAL Hx Gastrointestinal Disorders: Yes Hx Constipation: Yes - GENITOURINARY/GYNECOLOGICAL Hx Genitourinary Disorders: No - PSYCHIATRIC Hx Psychophysiologic Disorder: No Hx Substance Use: No - SURGICAL HISTORY Hx Surgeries: Yes Other/Comment: cardiac cath. Laryngeal bx 2013 - ANESTHESIA Hx Anesthesia: Yes Hx Anesthesia Reactions: No Hx Malignant Hyperthermia: No Meds Allergies/Adverse Reactions: Allergies Allergy/AdvReac Type Severity Reaction Status Date / Time No Known Allergies Allergy Verified 08/19/16 07:33 - Medications Medications: Current Medications Acetaminophen (Tylenol 325mg Tab) 650 mg PO Q6 PRN PRN Reason: Pain, Mild (1-3) Acetaminophen (Tylenol 325mg Tab) 650 mg PO Q6 PRN PRN Reason: Fever >100.4 F Albuterol/Ipratropium (Duoneb 3 Mg/0.5 Mg (3 Ml) Ud) 3 ml INH RQ6 PRN PRN Reason: Shortness of Breath Last Admin: 03/09/18 19:50 Dose: 3 ml Atorvastatin Calcium (Lipitor) 20 mg PO HS [facility] Last Admin: 03/09/18 21:17 Dose: 20 mg Famotidine (Pepcid) 20 mg PO DAILY [facility] Last Admin: 03/10/18 09:26 Dose: Not Given Lactated Ringer's (Lactated Ringer's) 1,000 mls @ 84 mls/hr IV .[id number] [facility] Last Admin: 03/10/18 05:36 Dose: Not Given Latanoprost (Xalatan Opht) 1 drop OS HS [facility] Last Admin: 03/09/18 21:19 Dose: Not Given Methylprednisolone (Solu-Medrol) 40 mg IVP Q8H [facility] Last Admin: 03/10/18 09:25 Dose: 40 mg Pantoprazole Sodium (Protonix Ec Tab) 40 mg PO DAILY [facility] Last Admin: 03/10/18 09:25 Dose: Not Given Promethazine HCl/Codeine (Phenergan/Codeine Oral Syrup) 10 ml PO Q6 PRN PRN Reason: Cough Physical Exam - Constitutional Appears: Well, Non-toxic, No Acute Distress - Head Exam Head Exam: ATRAUMATIC, NORMOCEPHALIC - Eye Exam Eye Exam: EOMI, PERRL - ENT Exam ENT Exam: Mucous Membranes Moist, Normal Exam - Neck Exam Neck exam: Positive for: Full Rom, Normal Inspection. Negative for: Tenderness Additional comments: No palpable mass noted - Respiratory Exam Respiratory Exam: NORMAL BREATHING PATTERN. absent: Respiratory Distress - GI/Abdominal Exam GI & Abdominal Exam: Soft. absent: Firm, Rigid, Tenderness - Rectal Exam Rectal Exam: Deferred - Extremities Exam Extremities exam: Positive for: normal capillary refill, normal inspection - Back Exam Back exam: absent: CVA tenderness (L), CVA tenderness (R) - Neurological Exam Neurological exam: Alert, Oriented x3 - Psychiatric Exam Psychiatric exam: Normal Affect, Normal Mood Results - Vital Signs Recent Vital Signs: Last Vital Signs Temp 98.1 F 03/10/18 08:50 Pulse 80 03/10/18 08:50 Resp 20 03/10/18 08:50 BP 117/71 03/10/18 08:50 Pulse Ox 95 03/10/18 08:50 - Labs Result Diagrams: 03/10/18 06:10 03/10/18 06:10 Labs: Laboratory Results - last 24 hr 03/10/18 03/10/18 03/10/18 06:10 06:10 06:10 WBC 24.0 H RBC 4.94 Hgb 14.7 Hct 44.3 MCV 89.6 MCH 29.7 MCHC 33.2 RDW 14.8 H Plt Count 253 Sodium 141 Potassium 5.1 H Chloride 99 Carbon Dioxide 24 Anion Gap 23 H BUN 32 H Creatinine 1.1 Est GFR ( Amer) > 60 Est GFR (Non-Af Amer) > 60 Random Glucose 139 H Calcium 9.3 Total Bilirubin 0.4 AST 22 ALT 23 Alkaline Phosphatase 68 Total Protein 7.9 Albumin 4.1 Globulin 3.8 Albumin/Globulin Ratio 1.1 Blood Type AB POSITIVE Blood Type Confirm Antibody Screen Negative BBK History Checked No verified bt 03/10/18 09:14 WBC RBC Hgb Hct MCV MCH MCHC RDW Plt Count Sodium Potassium Chloride Carbon Dioxide Anion Gap BUN Creatinine Est GFR ( Amer) Est GFR (Non-Af Amer) Random Glucose Calcium Total Bilirubin AST ALT Alkaline Phosphatase Total Protein Albumin Globulin Albumin/Globulin Ratio Blood Type Blood Type Confirm AB POSITIVE Antibody Screen BBK History Checked Assessment & Plan - Assessment and Plan (Free Text) Assessment: 72M seen at bedside for tracheal polyp vs. neoplasm Plan: Patient seen and evaluated Afebrile, WBC 24.[address]: 12 mm mass along the anterior wall of the trachea possibly representing a tracheal polyp or neoplasm Discussed with Dr. Rosales Recommend biopsy of mass be performed by IR or ENT, however, strongly recommend that patient be transferred to a tertiary center with a high volume of similar cases for further workup Will continue to follow while patient in house - Date & Time Date: 03/10/18 Time: 17:01
--- NOTE | 2018-03-10 14:39 | CP.PCM.PN ---
Subjective - Date & Time of Evaluation Date of Evaluation: 03/10/18 Time of Evaluation: 10:00 - Subjective Subjective: F/U Tracheal Mass. occasional dry cough , no hemoptysis , no C/P , no SOB , no FLORES Objective - Vital Signs/Intake and Output Vital Signs (last 24 hours): Temp Pulse Resp BP Pulse Ox 98.1 F 80 20 117/71 95 03/10/18 08:50 03/10/18 08:50 03/10/18 08:50 03/10/18 08:50 03/10/18 08:50 - Medications Medications: Current Medications Acetaminophen (Tylenol 325mg Tab) 650 mg PO Q6 PRN PRN Reason: Pain, Mild (1-3) Acetaminophen (Tylenol 325mg Tab) 650 mg PO Q6 PRN PRN Reason: Fever >100.4 F Albuterol/Ipratropium (Duoneb 3 Mg/0.5 Mg (3 Ml) Ud) 3 ml INH RQ6 PRN PRN Reason: Shortness of Breath Last Admin: 03/09/18 19:50 Dose: 3 ml Atorvastatin Calcium (Lipitor) 20 mg PO HS [facility] Last Admin: 03/09/18 21:17 Dose: 20 mg Famotidine (Pepcid) 20 mg PO DAILY [facility] Last Admin: 03/10/18 09:26 Dose: Not Given Lactated Ringer's (Lactated Ringer's) 1,000 mls @ 84 mls/hr IV .[id number] [facility] Last Admin: 03/10/18 05:36 Dose: Not Given Latanoprost (Xalatan Opht) 1 drop OS HS [facility] Last Admin: 03/09/18 21:19 Dose: Not Given Methylprednisolone (Solu-Medrol) 40 mg IVP Q8H [facility] Last Admin: 03/10/18 09:25 Dose: 40 mg Pantoprazole Sodium (Protonix Ec Tab) 40 mg PO DAILY [facility] Last Admin: 03/10/18 09:25 Dose: Not Given Promethazine HCl/Codeine (Phenergan/Codeine Oral Syrup) 10 ml PO Q6 PRN PRN Reason: Cough - Labs Labs: 03/10/18 06:10 03/10/18 06:10 PT 13.0 Seconds (9.8-13.1) 03/06/18 13:06 INR 1.1 (0.9-1.2) 03/06/18 13:06 - Constitutional Appears: No Acute Distress - Head Exam Head Exam: NORMAL INSPECTION - Eye Exam Eye Exam: PERRL - ENT Exam ENT Exam: Normal Exam - Neck Exam Neck Exam: Normal Inspection - Respiratory Exam Respiratory Exam: Clear to Ausculation Bilateral - Cardiovascular Exam Cardiovascular Exam: REGULAR RHYTHM - GI/Abdominal Exam GI & Abdominal Exam: Soft, Normal Bowel Sounds - Extremities Exam Extremities Exam: Normal Inspection - Back Exam Back Exam: NORMAL INSPECTION - Neurological Exam Neurological Exam: Alert, CN II-XII Intact, Oriented x3 - Psychiatric Exam Psychiatric exam: Normal Affect - Skin Skin Exam: Warm Assessment and Plan (1) Tracheal mass Status: Acute (2) Hemoptysis Status: Acute - Assessment and Plan (Free Text) Plan: Discussed with Anesthesiologist , during Bronchoscopy , Patient may develop cough and is mass dislodge and travel to distal Trachea and Audra may create a complete airway obstruction , decision was to have Thoracic surgical consult , to aproach mass with ridgid scope.
[2018-03-10] MEDS: Latanoprost 0.005% Opht SOUTION OS SCH ×2 (21:49→21:52)
[2018-03-11] MEDS: MethylPREDNISolone 40 mg Vial IVP SCH ×3 (00:53→16:31)
[2018-03-11] MEDS: Albuterol-Ipratrop 3 mg / 0.5 (3 ml) UD INH PRN (01:15)
[2018-03-11] MEDS: Lactated Ringer's 1,000 ML IV SCH (07:28)
--- NOTE | 2018-03-11 09:33 | CP.PCM.PN ---
<LesterSultan - Last Filed: 03/11/18 14:03> Subjective - Date & Time of Evaluation Date of Evaluation: 03/11/18 Time of Evaluation: 08:55 - Subjective Subjective: Patient seen and examined this morning. No acute overnight events. Reports some cough with blood tinged sputum last night. Denies chest pain, sob, palpitations or dizziness. Last BM was 3 days ago and voiding regularly. Denies abdominal pain, abdominal distension, nausea, or vomiting. Tolerating po diet. Objective - Vital Signs/Intake and Output Vital Signs (last 24 hours): Temp Pulse Resp BP Pulse Ox 97.8 F 59 L 19 144/81 96 03/11/18 08:02 03/11/18 08:02 03/11/18 08:02 03/11/18 08:02 03/11/18 08:02 - Medications Medications: Current Medications Acetaminophen (Tylenol 325mg Tab) 650 mg PO Q6 PRN PRN Reason: Pain, Mild (1-3) Acetaminophen (Tylenol 325mg Tab) 650 mg PO Q6 PRN PRN Reason: Fever >100.4 F Albuterol/Ipratropium (Duoneb 3 Mg/0.5 Mg (3 Ml) Ud) 3 ml INH RQ6 PRN PRN Reason: Shortness of Breath Last Admin: 03/11/18 01:15 Dose: 3 ml Atorvastatin Calcium (Lipitor) 20 mg PO HS [facility] Last Admin: 03/10/18 21:49 Dose: 20 mg Famotidine (Pepcid) 20 mg PO DAILY [facility] Last Admin: 03/10/18 09:26 Dose: Not Given Lactated Ringer's (Lactated Ringer's) 1,000 mls @ 84 mls/hr IV .[id number] [facility] Last Admin: 03/11/18 07:28 Dose: Not Given Latanoprost (Xalatan Opht) 1 drop OS HS [facility] Last Admin: 03/10/18 21:52 Dose: Not Given Methylprednisolone (Solu-Medrol) 40 mg IVP Q8H [facility] Last Admin: 03/11/18 00:53 Dose: 40 mg Pantoprazole Sodium (Protonix Ec Tab) 40 mg PO DAILY [facility] Last Admin: 03/10/18 09:25 Dose: Not Given - Labs Labs: 03/10/18 06:10 03/10/18 06:10 PT 13.0 Seconds (9.8-13.1) 03/06/18 13:06 INR 1.1 (0.9-1.2) 03/06/18 13:06 - Additional Findings Additional findings: - Constitutional Appears: Non-toxic, No Acute Distress - Eye Exam Eye Exam: Normal appearance - ENT Exam ENT Exam: Mucous Membranes Moist - Neck Exam Neck Exam: Normal Inspection - Respiratory Exam Respiratory Exam: Clear to Auscultation Bilateral, NORMAL BREATHING PATTERN. absent: Rales, Rhonchi, Wheezes - Cardiovascular Exam Cardiovascular Exam: REGULAR RHYTHM, +S1, +S2. absent: Murmur - GI/Abdominal Exam GI & Abdominal Exam: Soft, Normal Bowel Sounds. 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 1) Hemoptysis -secondary to tracheal mass in patient with PMhx/o vocal cord Ca -reported 4 episodes of hemoptysis in 1 month -Labs normal, no anemia -CXR: no infiltrates, pneumothorax Chest CT: 12 mm mass along the anterior wall of the trachea possible representing a tracheal polyp or neoplasm. 3 mm RUL nodule, no mass, no consolidation. No PE. Recommend correlation with bronchoscopy. -Microwave Technician Dr Elmore on board. Bronchoscopy was differed due to possible complication of mass dislodge to distal Trachea and Audra which may create a complete airway obstruction. -PPD ordered in [facility] 09/2017 to r/o TB. patient did not go for reading -f/u quantiferon, asperfillus ab and fungitell assay 2) Tracheal mass -h/o vocal cord Ca s/p resection 5 years ago w/o chemo or radiotherapy -Was to f/u with ENT yearly, has not done so in 2 yrs -Chest CT: 12 mm mass along the anterior wall of the trachea possible representing a tracheal polyp or neoplasm -ENT consult consult appreciated; Had flexible laryngoscopy yesterday which showed no mass/lesion. -Microwave Technician Dr Elmore on board. Bronchoscopy was differed due to possible complication of mass dislodge to distal Trachea and Audra which may create a complete airway obstruction. -Thoracic surgery: Recommend biopsy of mass be performed by IR or ENT, however, strongly recommend that patient be transferred to a tertiary center with a high volume of similar cases for further workup 3) HTN -controlled c/w home Amlodipine 5 mg daily 4) HLD Last lipid profile reviewed -c/w Lipitor 20 mg daily 5) BPH -symptomatic with nocturia -c/w flomax 0,4 mg HS 6) DVT prophylaxis -SCD due to bronchoscopy today 7)Code status -Full code <Abe Elmore - Last Filed: 03/12/18 09:25> Objective - Vital Signs/Intake and Output Vital Signs (last 24 hours): Temp Pulse Resp BP Pulse Ox 98.1 F 59 L 20 117/71 94 L 03/12/18 08:45 03/12/18 08:45 03/12/18 08:45 03/12/18 08:45 03/12/18 08:45 - Medications Medications: Current Medications Acetaminophen (Tylenol 325mg Tab) 650 mg PO Q6 PRN PRN Reason: Pain, Mild (1-3) Last Admin: 03/11/18 16:51 Dose: 650 mg Acetaminophen (Tylenol 325mg Tab) 650 mg PO Q6 PRN PRN Reason: Fever >100.4 F Albuterol/Ipratropium (Duoneb 3 Mg/0.5 Mg (3 Ml) Ud) 3 ml INH RQ6 PRN PRN Reason: Shortness of Breath Last Admin: 03/11/18 01:15 Dose: 3 ml Atorvastatin Calcium (Lipitor) 20 mg PO HS [facility] Last Admin: 03/11/18 22:40 Dose: 20 mg Famotidine (Pepcid) 20 mg PO DAILY [facility] Last Admin: 03/12/18 09:02 Dose: Not Given Lactated Ringer's (Lactated Ringer's) 1,000 mls @ 84 mls/hr IV .[id number] [facility] Last Admin: 03/11/18 07:28 Dose: Not Given Latanoprost (Xalatan Opht) 1 drop OS HS [facility] Last Admin: 03/11/18 22:40 Dose: 1 drop Magnesium Hydroxide (Milk Of Magnesia) 30 ml PO DAILY [facility] Last Admin: 03/12/18 09:02 Dose: Not Given Methylprednisolone (Solu-Medrol) 30 mg IVP Q8 [facility] Last Admin: 03/12/18 08:57 Dose: 30 mg Pantoprazole Sodium (Protonix Ec Tab) 40 mg PO DAILY [facility] Last Admin: 03/12/18 09:02 Dose: Not Given - Labs Labs: 03/10/18 06:10 03/10/18 06:10 PT 13.0 Seconds (9.8-13.1) 03/06/18 13:06 INR 1.1 (0.9-1.2) 03/06/18 13:06 Assessment and Plan (1) Tracheal mass Status: Acute (2) Hemoptysis Status: Acute
[2018-03-11] MEDS: Pantoprazole 40 mg EC Tab PO SCH (10:04)
[2018-03-11] MEDS: Magnesium Hydroxide Susp 30 ml UD PO SCH (16:30)
--- NOTE | 2018-03-11 18:13 | CP.PCM.PN ---
Subjective - Date & Time of Evaluation Date of Evaluation: 03/11/18 Time of Evaluation: 11:40 - Subjective Subjective: F/U Tracheal mass. Late yesterday cough with streaks of blood , also today cough with scanty flegm with streak of blood Objective - Vital Signs/Intake and Output Vital Signs (last 24 hours): Temp Pulse Resp BP Pulse Ox 98.2 F 57 L 18 156/80 H 95 03/11/18 15:40 03/11/18 15:40 03/11/18 15:40 03/11/18 15:40 03/11/18 15:40 - Medications Medications: Current Medications Acetaminophen (Tylenol 325mg Tab) 650 mg PO Q6 PRN PRN Reason: Pain, Mild (1-3) Last Admin: 03/11/18 16:51 Dose: 650 mg Acetaminophen (Tylenol 325mg Tab) 650 mg PO Q6 PRN PRN Reason: Fever >100.4 F Albuterol/Ipratropium (Duoneb 3 Mg/0.5 Mg (3 Ml) Ud) 3 ml INH RQ6 PRN PRN Reason: Shortness of Breath Last Admin: 03/11/18 01:15 Dose: 3 ml Atorvastatin Calcium (Lipitor) 20 mg PO HS [facility] Last Admin: 03/10/18 21:49 Dose: 20 mg Famotidine (Pepcid) 20 mg PO DAILY [facility] Last Admin: 03/11/18 10:04 Dose: 20 mg Lactated Ringer's (Lactated Ringer's) 1,000 mls @ 84 mls/hr IV .[id number] [facility] Last Admin: 03/11/18 07:28 Dose: Not Given Latanoprost (Xalatan Opht) 1 drop OS HS [facility] Last Admin: 03/10/18 21:52 Dose: Not Given Magnesium Hydroxide (Milk Of Magnesia) 30 ml PO DAILY [facility] Last Admin: 03/11/18 16:30 Dose: 30 ml Methylprednisolone (Solu-Medrol) 40 mg IVP Q8H [facility] Last Admin: 03/11/18 16:31 Dose: 40 mg Pantoprazole Sodium (Protonix Ec Tab) 40 mg PO DAILY [facility] Last Admin: 03/11/18 10:04 Dose: 40 mg - Labs Labs: 03/10/18 06:10 03/10/18 06:10 PT 13.0 Seconds (9.8-13.1) 03/06/18 13:06 INR 1.1 (0.9-1.2) 03/06/18 13:06 - Constitutional Appears: No Acute Distress - Head Exam Head Exam: NORMAL INSPECTION - Eye Exam Eye Exam: PERRL - ENT Exam ENT Exam: Normal Exam - Neck Exam Neck Exam: Normal Inspection - Respiratory Exam Respiratory Exam: Clear to Ausculation Bilateral - Cardiovascular Exam Cardiovascular Exam: REGULAR RHYTHM - GI/Abdominal Exam GI & Abdominal Exam: Soft, Normal Bowel Sounds - Extremities Exam Extremities Exam: Normal Inspection - Back Exam Back Exam: NORMAL INSPECTION - Neurological Exam Neurological Exam: Alert, CN II-XII Intact. absent: Motor Sensory Deficit - Psychiatric Exam Psychiatric exam: Normal Affect - Skin Skin Exam: Warm Assessment and Plan (1) Tracheal mass Status: Acute (2) Hemoptysis Status: Acute - Assessment and Plan (Free Text) Plan: Thoracic mental hygiene consultant requested Patient to be transferred to a terciary referal center wbc elevated 2nd to steroids, continue DuoNeb , taper steroids.
[2018-03-11] MEDS: Latanoprost 0.005% Opht SOUTION OS SCH (22:40)
[2018-03-12] MEDS: MethylPREDNISolone 40 mg Vial IVP SCH ×3 (01:08→16:20)
--- NOTE | 2018-03-12 06:59 | CP.PCM.PN ---
Subjective - Date & Time of Evaluation Date of Evaluation: 03/12/18 Time of Evaluation: 07:35 - Subjective Subjective: Patient seen and examined this morning. No acute overnight events. States no cough last night. Denies chest pain, sob, palpitations or dizziness. No BM for last 3 days. Denies abdominal pain, abdominal distension, nausea, vomiting, fever, or chills. Tolerating po diet. Thoracic surgery strongly recommend that patient be transferred to a tertiary center with a high volume of similar cases for further workup for tracheal mass. Objective - Vital Signs/Intake and Output Vital Signs (last 24 hours): Temp Pulse Resp BP Pulse Ox 98 F 70 18 127/70 95 03/12/18 00:15 03/12/18 00:15 03/12/18 00:15 03/12/18 00:15 03/12/18 00:15 - Medications Medications: Current Medications Acetaminophen (Tylenol 325mg Tab) 650 mg PO Q6 PRN PRN Reason: Pain, Mild (1-3) Last Admin: 03/11/18 16:51 Dose: 650 mg Acetaminophen (Tylenol 325mg Tab) 650 mg PO Q6 PRN PRN Reason: Fever >100.4 F Albuterol/Ipratropium (Duoneb 3 Mg/0.5 Mg (3 Ml) Ud) 3 ml INH RQ6 PRN PRN Reason: Shortness of Breath Last Admin: 03/11/18 01:15 Dose: 3 ml Atorvastatin Calcium (Lipitor) 20 mg PO HS [facility] Last Admin: 03/11/18 22:40 Dose: 20 mg Famotidine (Pepcid) 20 mg PO DAILY [facility] Last Admin: 03/11/18 10:04 Dose: 20 mg Lactated Ringer's (Lactated Ringer's) 1,000 mls @ 84 mls/hr IV .[id number] [facility] Last Admin: 03/11/18 07:28 Dose: Not Given Latanoprost (Xalatan Opht) 1 drop OS [facility] Last Admin: 03/11/18 22:40 Dose: 1 drop Magnesium Hydroxide (Milk Of Magnesia) 30 ml PO DAILY [facility] Last Admin: 03/11/18 16:30 Dose: 30 ml Methylprednisolone (Solu-Medrol) 30 mg IVP Q8 [facility] Last Admin: 03/12/18 01:08 Dose: 30 mg Pantoprazole Sodium (Protonix Ec Tab) 40 mg PO DAILY [facility] Last Admin: 03/11/18 10:04 Dose: 40 mg - Labs Labs: 03/10/18 06:10 03/10/18 06:10 PT 13.0 Seconds (9.8-13.1) 03/06/18 13:06 INR 1.1 (0.9-1.2) 03/06/18 13:06 - Additional Findings Additional findings: - Constitutional Appears: Non-toxic, No Acute Distress - Eye Exam Eye Exam: Normal appearance - ENT Exam ENT Exam: Mucous Membranes Moist - Neck Exam Neck Exam: Normal Inspection - Respiratory Exam Respiratory Exam: Clear to Auscultation Bilateral, NORMAL BREATHING PATTERN. absent: Rales, Rhonchi, Wheezes - Cardiovascular Exam Cardiovascular Exam: REGULAR RHYTHM, +S1, +S2. absent: Murmur - GI/Abdominal Exam GI & Abdominal Exam: Soft, Normal Bowel Sounds. 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 1) Hemoptysis -secondary to tracheal mass in patient with PMhx/o vocal cord Ca -reported 4 episodes of hemoptysis in 1 month -Labs normal, no anemia -CXR: no infiltrates, pneumothorax Chest CT: 12 mm mass along the anterior wall of the trachea possible representing a tracheal polyp or neoplasm. 3 mm RUL nodule, no mass, no consolidation. No PE. Recommend correlation with bronchoscopy. -Postal Superintendent Dr Elmore on board. Bronchoscopy was differed due to possible complication of mass dislodge to distal Trachea and Audra which may create a complete airway obstruction. -PPD ordered in [facility] 09/2017 to r/o TB. patient did not go for reading -f/u quantiferon, asperfillus ab and fungitell assay 2) Tracheal mass -h/o vocal cord Ca s/p resection 5 years ago w/o chemo or radiotherapy -Was to f/u with ENT yearly, has not done so in 2 yrs -Chest CT: 12 mm mass along the anterior wall of the trachea possible representing a tracheal polyp or neoplasm -ENT consult consult appreciated; Had flexible laryngoscopy yesterday which showed no mass/lesion. -Postal Superintendent Dr Elmore on board. Bronchoscopy was differed due to possible complication of mass dislodge to distal Trachea and Audra which may create a complete airway obstruction. -Thoracic surgery: Recommend biopsy of mass be performed by IR or ENT, however, strongly recommend that patient be transferred to a tertiary center with a high volume of similar cases for further workup 3) HTN -controlled c/w home Amlodipine 5 mg daily 4) HLD -Last lipid profile reviewed -c/w Lipitor 20 mg daily 5) BPH -symptomatic with nocturia -c/w flomax 0,4 mg HS 6) DVT prophylaxis -SCD due to bronchoscopy today 7)Code status -Full code
[2018-03-12] MEDS: Pantoprazole 40 mg EC Tab PO SCH (09:02)
[2018-03-12] MEDS: Magnesium Hydroxide Susp 30 ml UD PO SCH (09:02)
--- NOTE | 2018-03-12 09:25 | CP.PCM.PN ---
Subjective - Date & Time of Evaluation Date of Evaluation: 03/12/18 Time of Evaluation: 10:00 - Subjective Subjective: F/U Tracheal Mass. Occasional dry cough, no hemoptysis , no SOB , no FLORES , no C/P , constipation Objective - Vital Signs/Intake and Output Vital Signs (last 24 hours): Temp Pulse Resp BP Pulse Ox 98.1 F 59 L 20 117/71 94 L 03/12/18 08:45 03/12/18 08:45 03/12/18 08:45 03/12/18 08:45 03/12/18 08:45 - Medications Medications: Current Medications Acetaminophen (Tylenol 325mg Tab) 650 mg PO Q6 PRN PRN Reason: Pain, Mild (1-3) Last Admin: 03/11/18 16:51 Dose: 650 mg Acetaminophen (Tylenol 325mg Tab) 650 mg PO Q6 PRN PRN Reason: Fever >100.4 F Albuterol/Ipratropium (Duoneb 3 Mg/0.5 Mg (3 Ml) Ud) 3 ml INH RQ6 PRN PRN Reason: Shortness of Breath Last Admin: 03/11/18 01:15 Dose: 3 ml Atorvastatin Calcium (Lipitor) 20 mg PO HS [facility] Last Admin: 03/11/18 22:40 Dose: 20 mg Famotidine (Pepcid) 20 mg PO DAILY [facility] Last Admin: 03/12/18 09:02 Dose: Not Given Lactated Ringer's (Lactated Ringer's) 1,000 mls @ 84 mls/hr IV .[id number] [facility] Last Admin: 03/11/18 07:28 Dose: Not Given Latanoprost (Xalatan Opht) 1 drop OS HS [facility] Last Admin: 03/11/18 22:40 Dose: 1 drop Magnesium Hydroxide (Milk Of Magnesia) 30 ml PO DAILY [facility] Last Admin: 03/12/18 09:02 Dose: Not Given Methylprednisolone (Solu-Medrol) 30 mg IVP Q8 [facility] Last Admin: 03/12/18 08:57 Dose: 30 mg Pantoprazole Sodium (Protonix Ec Tab) 40 mg PO DAILY [facility] Last Admin: 03/12/18 09:02 Dose: Not Given - Labs Labs: 03/10/18 06:10 03/10/18 06:10 PT 13.0 Seconds (9.8-13.1) 03/06/18 13:06 INR 1.1 (0.9-1.2) 03/06/18 13:06 - Constitutional Appears: No Acute Distress - Head Exam Head Exam: NORMAL INSPECTION - Eye Exam Eye Exam: PERRL - ENT Exam ENT Exam: Normal Exam - Neck Exam Neck Exam: Normal Inspection - Respiratory Exam Respiratory Exam: Clear to Ausculation Bilateral - Cardiovascular Exam Cardiovascular Exam: REGULAR RHYTHM - GI/Abdominal Exam GI & Abdominal Exam: Soft, Normal Bowel Sounds - Extremities Exam Extremities Exam: Normal Inspection - Back Exam Back Exam: NORMAL INSPECTION - Neurological Exam Neurological Exam: Alert, CN II-XII Intact, Oriented x3. absent: Motor Sensory Deficit - Psychiatric Exam Psychiatric exam: Normal Affect - Skin Skin Exam: Warm Assessment and Plan (1) Tracheal mass Status: Acute (2) Hemoptysis Status: Acute - Assessment and Plan (Free Text) Plan: discussed with attendant , transfer patient to [facility] , continue DuoNeb , taper Solu Medrol , wbc elevated 2nd to steroid, monitor K
[2018-03-12 20:12] LABS: TB ANTIGEN MINUS NIL <0.00 IU/mL
[2018-03-12] MEDS: Latanoprost 0.005% Opht SOUTION OS SCH (22:06)
[2018-03-13] MEDS: MethylPREDNISolone 40 mg Vial IVP SCH ×3 (01:46→16:14)
--- NOTE | 2018-03-13 07:21 | CP.PCM.PN ---
Subjective - Date & Time of Evaluation Date of Evaluation: 03/13/18 Time of Evaluation: 07:35 - Subjective Subjective: Patient seen and examined at bedside today. No acute overnight events. Still has mild cough but no blood in sputum. Denies chest pain, sob, palpitations or dizziness. Did not have any BM for last 4 days. Denies abdominal pain, abdominal distension, nausea, vomiting, fever, or chills. Tolerating po diet. Pt is scheduled to transfer to [facility] tomorrow afternoon. Objective - Vital Signs/Intake and Output Vital Signs (last 24 hours): Temp Pulse Resp BP Pulse Ox 97.5 F L 67 19 116/76 96 03/13/18 01:00 03/13/18 01:00 03/13/18 01:00 03/13/18 01:00 03/13/18 01:00 - Medications Medications: Current Medications Acetaminophen (Tylenol 325mg Tab) 650 mg PO Q6 PRN PRN Reason: Pain, Mild (1-3) Last Admin: 03/11/18 16:51 Dose: 650 mg Acetaminophen (Tylenol 325mg Tab) 650 mg PO Q6 PRN PRN Reason: Fever >100.4 F Albuterol/Ipratropium (Duoneb 3 Mg/0.5 Mg (3 Ml) Ud) 3 ml INH RQ6 PRN PRN Reason: Shortness of Breath Last Admin: 03/11/18 01:15 Dose: 3 ml Atorvastatin Calcium (Lipitor) 20 mg PO HS [facility] Last Admin: 03/12/18 22:04 Dose: 20 mg Famotidine (Pepcid) 20 mg PO DAILY [facility] Last Admin: 03/12/18 09:02 Dose: Not Given Latanoprost (Xalatan Opht) 1 drop OS HS [facility] Last Admin: 03/12/18 22:06 Dose: 1 drop Magnesium Hydroxide (Milk Of Magnesia) 30 ml PO DAILY [facility] Last Admin: 03/12/18 09:02 Dose: Not Given Methylprednisolone (Solu-Medrol) 30 mg IVP Q8 [facility] Last Admin: 03/13/18 01:46 Dose: 30 mg Pantoprazole Sodium (Protonix Ec Tab) 40 mg PO DAILY [facility] Last Admin: 03/12/18 09:02 Dose: Not Given - Labs Labs: 03/10/18 06:10 03/10/18 06:10 PT 13.0 Seconds (9.8-13.1) 03/06/18 13:06 INR 1.1 (0.9-1.2) 03/06/18 13:06 - Constitutional Appears: Non-toxic, No Acute Distress - Head Exam Head Exam: NORMAL INSPECTION - ENT Exam ENT Exam: Mucous Membranes Moist, Normal Oropharynx - Respiratory Exam Respiratory Exam: Clear to Ausculation Bilateral, NORMAL BREATHING PATTERN. absent: Rales, Rhonchi, Wheezes, Respiratory Distress - Cardiovascular Exam Cardiovascular Exam: REGULAR RHYTHM, RRR, +S1, +S2 - GI/Abdominal Exam GI & Abdominal Exam: Distended (mild), Soft, Normal Bowel Sounds. absent: Tenderness, Rebound - Extremities Exam Extremities Exam: Normal Inspection. 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 1) Hemoptysis -secondary to tracheal mass in patient with PMhx/o vocal cord Ca -reported 4 episodes of hemoptysis in 1 month -Labs normal, no anemia -CXR: no infiltrates, pneumothorax Chest CT: 12 mm mass along the anterior wall of the trachea possible representing a tracheal polyp or neoplasm. 3 mm RUL nodule, no mass, no consolidation. No PE. Recommend correlation with bronchoscopy. -Payroll Auditor Dr Elmore on board. Bronchoscopy was differed due to possible complication of mass dislodge to distal Trachea and Audra which may create a complete airway obstruction. -PPD ordered in [facility] 09/2017 to r/o TB. patient did not go for reading -TB TEST: indeterminate -f/u asperfillus ab and fungitell assay 2) Tracheal mass -h/o vocal cord Ca s/p resection 5 years ago w/o chemo or radiotherapy -Was to f/u with ENT yearly, has not done so in 2 yrs -Chest CT: 12 mm mass along the anterior wall of the trachea possible representing a tracheal polyp or neoplasm -ENT consult consult appreciated; Had flexible laryngoscopy yesterday which showed no mass/lesion. -Payroll Auditor Dr Elmore on board. Bronchoscopy was differed due to possible complication of mass dislodge to distal Trachea and Audra which may create a complete airway obstruction. -Thoracic surgery: Recommend biopsy of mass be performed by IR or ENT, however, strongly recommend that patient be transferred to a tertiary center with a high volume of similar cases for further workup -Awaiting transfer to [place] tomorrow. 3) Leukocytosis -likely secondary to steroid use -Trending down 4) HTN -controlled c/w home Amlodipine 5 mg daily 5) HLD -Last lipid profile reviewed -c/w Lipitor 20 mg daily 6) BPH -symptomatic with nocturia -c/w flomax 0,4 mg HS 7) Constipation -chronic -encourage po intake -c/w magnesium hydroxide 30 ml po daily 8) DVT prophylaxis -SCD due to bronchoscopy today 9)Code status -Full code
[2018-03-13 09:04] LABS: BASO # 0.1 K/uL (0.0-0.2); BASO % 0.4 % (0.0-2.0); EOS % 0.1 % (0.0-4.0); LYMPH # 1.6 K/uL (1.0-4.3); LYMPH % 10.6 % (20.0-40.0); MEAN PLATELET VOLUME 8.8 fl (7.2-11.7); MONO # 1.4 K/uL (0.0-0.8); MONO % 9.6 % (0.0-10.0); NEUT # 11.7 K/uL (1.8-7.0); NEUT % 79.3 % (50.0-75.0); RBC 4.19 Mil/uL (4.40-5.90); RED CELL DISTRIBUTION WIDTH 13.5 % (11.5-14.5); WHITE BLOOD COUNT 14.8 K/uL (4.8-10.8)
[2018-03-13 09:17] LABS: ALBUMIN 3.8 g/dL (3.5-5.0); ALT/SGPT 140 U/L (21-72); AST/SGOT 90 U/L (17-59); BLOOD UREA NITROGEN 9 mg/dl (9-20); CALCIUM 8.1 mg/dL (8.4-10.2); GFR AFRICAN-AMERICAN > 60; GFR NON-AFRICAN AMERICAN > 60
[2018-03-13] MEDS: Pantoprazole 40 mg EC Tab PO SCH (09:24)
[2018-03-13] MEDS: Magnesium Hydroxide Susp 30 ml UD PO SCH (09:38)
[2018-03-13 09:44] LABS: MEAN CELL VOLUME 97.1 fl (80.0-94.0)
[2018-03-13 09:46] LABS: HEMOGLOBIN 14.6 g/dL (12.0-18.0)
[2018-03-13 15:52] VITALS: RESP 20
--- NOTE | 2018-03-13 18:27 | CP.PCM.PN ---
Subjective - Date & Time of Evaluation Date of Evaluation: 03/13/18 Time of Evaluation: 15:30 - Subjective Subjective: F/U Tracheal Mass. Occasional dry cough, no hemoptysis, no SOB, no FLORES. Objective - Vital Signs/Intake and Output Vital Signs (last 24 hours): Temp Pulse Resp BP Pulse Ox 98.4 F 68 20 117/77 97 03/13/18 15:51 03/13/18 15:51 03/13/18 15:51 03/13/18 15:51 03/13/18 15:51 - Medications Medications: Current Medications Acetaminophen (Tylenol 325mg Tab) 650 mg PO Q6 PRN PRN Reason: Pain, Mild (1-3) Last Admin: 03/11/18 16:51 Dose: 650 mg Acetaminophen (Tylenol 325mg Tab) 650 mg PO Q6 PRN PRN Reason: Fever >100.4 F Albuterol/Ipratropium (Duoneb 3 Mg/0.5 Mg (3 Ml) Ud) 3 ml INH RQ6 PRN PRN Reason: Shortness of Breath Last Admin: 03/11/18 01:15 Dose: 3 ml Atorvastatin Calcium (Lipitor) 20 mg PO HS [facility] Last Admin: 03/12/18 22:04 Dose: 20 mg Latanoprost (Xalatan Opht) 1 drop OS HS [facility] Last Admin: 03/12/18 22:06 Dose: 1 drop Magnesium Hydroxide (Milk Of Magnesia) 30 ml PO DAILY [facility] Last Admin: 03/13/18 09:38 Dose: 30 ml Methylprednisolone (Solu-Medrol) 30 mg IVP Q8 [facility] Last Admin: 03/13/18 16:14 Dose: 30 mg Pantoprazole Sodium (Protonix Ec Tab) 40 mg PO DAILY [facility] Last Admin: 03/13/18 09:24 Dose: 40 mg Sennosides (Senokot Tab) 17.2 mg PO HS [facility] - Labs Labs: 03/13/18 06:30 03/13/18 06:30 PT 13.0 Seconds (9.8-13.1) 03/06/18 13:06 INR 1.1 (0.9-1.2) 03/06/18 13:06 - Constitutional Appears: No Acute Distress - Head Exam Head Exam: NORMAL INSPECTION - Eye Exam Eye Exam: PERRL - ENT Exam ENT Exam: Normal Exam - Neck Exam Neck Exam: Normal Inspection - Respiratory Exam Respiratory Exam: Clear to Ausculation Bilateral - Cardiovascular Exam Cardiovascular Exam: REGULAR RHYTHM - GI/Abdominal Exam GI & Abdominal Exam: Soft, Normal Bowel Sounds - Extremities Exam Extremities Exam: Normal Inspection - Back Exam Back Exam: NORMAL INSPECTION - Neurological Exam Neurological Exam: Alert, CN II-XII Intact, Oriented x3. absent: Motor Sensory Deficit - Psychiatric Exam Psychiatric exam: Normal Mood - Skin Skin Exam: Warm Assessment and Plan (1) Tracheal mass Status: Acute (2) Hemoptysis Status: Acute - Assessment and Plan (Free Text) Plan: Continue current Tx. Awaiting for bed to transfer to [facility] tomorrow.
[2018-03-13] MEDS: Latanoprost 0.005% Opht SOUTION OS SCH (22:38)
[2018-03-14] MEDS: MethylPREDNISolone 40 mg Vial IVP SCH ×2 (01:30→08:32)
--- NOTE | 2018-03-14 06:26 | CP.PCM.PN ---
Subjective - Date & Time of Evaluation Date of Evaluation: 03/14/18 Time of Evaluation: 06:55 Objective - Vital Signs/Intake and Output Vital Signs (last 24 hours): Temp Pulse Resp BP Pulse Ox 97.8 F 57 L 20 121/80 95 03/13/18 23:29 03/13/18 23:29 03/13/18 23:29 03/13/18 23:29 03/13/18 23:29 - Medications Medications: Current Medications Acetaminophen (Tylenol 325mg Tab) 650 mg PO Q6 PRN PRN Reason: Pain, Mild (1-3) Last Admin: 03/11/18 16:51 Dose: 650 mg Acetaminophen (Tylenol 325mg Tab) 650 mg PO Q6 PRN PRN Reason: Fever >100.4 F Albuterol/Ipratropium (Duoneb 3 Mg/0.5 Mg (3 Ml) Ud) 3 ml INH RQ6 PRN PRN Reason: Shortness of Breath Last Admin: 03/11/18 01:15 Dose: 3 ml Atorvastatin Calcium (Lipitor) 20 mg PO HS [facility] Last Admin: 03/13/18 22:38 Dose: 20 mg Latanoprost (Xalatan Opht) 1 drop OS HS [facility] Last Admin: 03/13/18 22:38 Dose: 1 drop Magnesium Hydroxide (Milk Of Magnesia) 30 ml PO DAILY [facility] Last Admin: 03/13/18 09:38 Dose: 30 ml Methylprednisolone (Solu-Medrol) 30 mg IVP Q8 [facility] Last Admin: 03/14/18 01:30 Dose: 30 mg Pantoprazole Sodium (Protonix Ec Tab) 40 mg PO DAILY [facility] Last Admin: 03/13/18 09:24 Dose: 40 mg Sennosides (Senokot Tab) 17.2 mg PO HS [facility] Last Admin: 03/13/18 22:53 Dose: 17.2 mg - Labs Labs: 03/13/18 06:30 03/13/18 06:30 PT 13.0 Seconds (9.8-13.1) 03/06/18 13:06 INR 1.1 (0.9-1.2) 03/06/18 13:06
[2018-03-14 08:28] VITALS: BP 114/57; PULSE 63; TEMP 97.9; O2SAT 94
[2018-03-14] MEDS: Pantoprazole 40 mg EC Tab PO SCH (08:32)
[2018-03-14 09:00] LABS: ALBUMIN 3.9 g/dL (3.5-5.0); ALT/SGPT 45 U/L (21-72); AST/SGOT 35 U/L (17-59); BLOOD UREA NITROGEN 36 mg/dl (9-20); CALCIUM 8.7 mg/dL (8.4-10.2); GFR AFRICAN-AMERICAN > 60; GFR NON-AFRICAN AMERICAN > 60
[2018-03-14] MEDS: Magnesium Hydroxide Susp 30 ml UD PO SCH (09:00)
--- NOTE | 2018-03-14 09:09 | CP.PCM.DIS ---
Provider - Provider Date of Admission: 03/06/18 16:06 Attending physician: Katharine Mullins MD Consults: Dr Guidry- ENT Dr Destinee Parra Time Spent in preparation of Discharge (in minutes): 25 Diagnosis - Discharge Diagnosis (1) Hemoptysis Status: Acute (2) Tracheal mass Status: Acute Hospital Course - Lab Results Lab Results: Most Recent Lab Values WBC 14.8 K/uL (4.8-10.8) H 03/13/18 06:30 RBC 4.19 Mil/uL (4.40-5.90) L 03/13/18 06:30 Hgb 14.6 g/dL (12.0-18.0) 03/13/18 06:30 Hct 42.0 % (35.0-51.0) 03/13/18 06:30 MCV 97.1 fl (80.0-94.0) H D 03/13/18 06:30 MCH 35.0 pg (27.0-31.0) H 03/13/18 06:30 MCHC 36.0 g/dL (33.0-37.0) 03/13/18 06:30 RDW 13.5 % (11.5-14.5) 03/13/18 06:30 Plt Count 179 K/uL (130-400) 03/13/18 06:30 MPV 8.8 fl (7.2-11.7) 03/13/18 06:30 Neut % (Auto) 79.3 % (50.0-75.0) H 03/13/18 06:30 Lymph % (Auto) 10.6 % (20.0-40.0) L 03/13/18 06:30 [place] % (Auto) 9.6 % (0.0-10.0) 03/13/18 06:30 Eos % (Auto) 0.1 % (0.0-4.0) 03/13/18 06:30 Baso % (Auto) 0.4 % (0.0-2.0) 03/13/18 06:30 Neut # (Auto) 11.7 K/uL (1.8-7.0) H 03/13/18 06:30 Lymph # (Auto) 1.6 K/uL (1.0-4.3) 03/13/18 06:30 [place] # (Auto) 1.4 K/uL (0.0-0.8) H 03/13/18 06:30 Eos # (Auto) 0.0 K/uL (0.0-0.7) 03/13/18 06:30 Baso # (Auto) 0.1 K/uL (0.0-0.2) 03/13/18 06:30 PT 13.0 Seconds (9.8-13.1) 03/06/18 13:06 INR 1.1 (0.9-1.2) 03/06/18 13:06 pCO2 35 mm/Hg (35-45) 03/07/18 15:00 pO2 82 mm/Hg (80-100) 03/07/18 15:00 HCO3 24.4 mmol/L (21-28) 03/07/18 15:00 ABG pH 7.43 (7.35-7.45) 03/07/18 15:00 ABG Total CO2 24.3 mmol/L (22-28) 03/07/18 15:00 ABG O2 Saturation 96.9 % (95-98) 03/07/18 15:00 ABG O2 Content 19.1 ML/dL (15-23) 03/07/18 15:00 ABG Base Excess -0.6 mmol/L (-2.0-3.0) 03/07/18 15:00 ABG Hemoglobin 14.3 g/dL (11.7-17.4) 03/07/18 15:00 ABG Carboxyhemoglobin 1.0 % (0.5-1.5) 03/07/18 15:00 POC ABG HHb (Measured) 3.0 % (0.0-5.0) 03/07/18 15:00 ABG Methemoglobin 1.2 % (0.0-3.0) 03/07/18 15:00 ABG O2 Capacity 19.7 mL/dL (16-24) 03/07/18 15:00 Deniz Test Yes 03/07/18 15:00 A-a O2 Difference 24.0 mm/Hg 03/07/18 15:00 Hgb O2 Saturation 94.8 % (95.0-98.0) L 03/07/18 15:00 FiO2 21.0 % 05/13/18 15:00 Sodium 140 mmol/l (132-148) 03/14/18 08:20 Potassium 4.6 MMOL/L (3.6-5.0) 03/14/18 08:20 Chloride 96 mmol/L (98-107) L 03/14/18 08:20 Carbon Dioxide 28 mmol/L (22-30) 03/14/18 08:20 Anion Gap 21 (10-20) H 03/14/18 08:20 BUN 36 mg/dl (9-20) H 03/14/18 08:20 Creatinine 1.1 mg/dl (0.8-1.5) 03/14/18 08:20 Est GFR ( Amer) > 60 03/14/18 08:20 Est GFR (Non-Af Amer) > 60 03/14/18 08:20 Random Glucose 135 mg/dL (75-110) H 03/14/18 08:20 Calcium 8.7 mg/dL (8.4-10.2) 03/14/18 08:20 Total Bilirubin 0.6 mg/dl (0.2-1.3) 03/14/18 08:20 AST 35 U/L (17-59) 03/14/18 08:20 ALT 45 U/L (21-72) 03/14/18 08:20 Alkaline Phosphatase 58 U/L (38-126) 03/14/18 08:20 Troponin I < 0.0120 ng/mL (0.00-0.120) 03/06/18 16:20 Total Protein 7.9 G/DL (6.3-8.2) 03/14/18 08:20 Albumin 3.9 g/dL (3.5-5.0) 03/14/18 08:20 Globulin 4.0 gm/dL (2.2-3.9) H 03/14/18 08:20 Albumin/Globulin Ratio 1.0 (1.0-2.1) 03/14/18 08:20 TSH 3rd Generation 2.30 mIU/ML (0.46-4.68) 03/07/18 05:24 TB Test (QFT) Nil 0.07 IU/mL 03/10/18 11:07 TB Test Mitogen - Nil 0.08 IU/mL 05/16/18 11:07 TB Test TB - Nil <0.00 IU/mL 03/10/18 11:07 TB Test (QFT) Indeterminate (Negative) H 03/10/18 11:07 Blood Type AB POSITIVE 03/10/18 06:10 Blood Type Confirm AB POSITIVE 03/10/18 09:14 Antibody Screen Negative 03/10/18 06:10 BBK History Checked No verified bt 03/10/18 06:10 - Hospital Course Hospital Course: 72 yo male w/ PMHx of HTN, BPH, HLD, and 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 Pt was admitted for hemoptysis with tracheal mass noted on CT. The Chest CT showed 12 mm mass along the anterior wall of the trachea possible representing a tracheal polyp or neoplasm. 3 mm RUL nodule, no mass, no consolidation, no PE seen. Had flexible laryngoscopy which showed no mass/lesion. Thoracic surgery recommended biopsy of mass be performed by IR or ENT in a tertiary center with a high volume of similar cases for further workup. Discharge Exam - Additional Findings Additional findings: - Constitutional Appears: Non-toxic, No Acute Distress - Head Exam Head Exam: NORMAL INSPECTION - ENT Exam ENT Exam: Mucous Membranes Moist, Normal Oropharynx - Respiratory Exam Respiratory Exam: Clear to Ausculation Bilateral, NORMAL BREATHING PATTERN. absent: Rales, Rhonchi, Wheezes, Respiratory Distress - Cardiovascular Exam Cardiovascular Exam: REGULAR RHYTHM, RRR, +S1, +S2 - GI/Abdominal Exam GI & Abdominal Exam: Distended (mild), Soft, Normal Bowel Sounds. absent: Tenderness, Rebound - Extremities Exam Extremities Exam: Normal Inspection. absent: Pedal Edema - Neurological Exam Neurological Exam: Alert, Awake, Oriented x3 - Psychiatric Exam Psychiatric exam: Normal Affect, Normal Mood Discharge Plan - Follow Up Plan Condition: STABLE Disposition: OTHER INSTITUTION Instructions: Coughing up Blood Additional Instructions: Transfer to [place] for management of tracheal mass. Referrals: Gurvinder Guidry MD [Staff Provider] - Tamar Dickerson MD [Staff Provider] - Abe Elmore MD [Staff Provider] -
== END 2018-03-14 15:17 | disposition short-term general hospital (02) | DRG 202 ==
LOC: H.ER 12:09 → H.ERHOLD 16:06 → H.TEL 18:25 → H.MEDSURG1 03-07 20:55
PROVIDERS: ADMIT Family Medicine Geriatric Medicine; ATTEND Family Medicine Geriatric Medicine
PROC: 0CJS8ZZ Inspection of Larynx, Via Natural or Artificial Opening Endoscopic (ICD-10-PCS; principal; 2018-03-08)
DX: J39.8 Other specified diseases of upper respiratory tract (principal); R04.2 Hemoptysis; K92.1 Melena; I10 Essential (primary) hypertension; N40.1 Benign prostatic hyperplasia with lower urinary tract symptoms; R35.1 Nocturia; E78.00 Pure hypercholesterolemia, unspecified; E78.5 Hyperlipidemia, unspecified; Z87.891 Personal history of nicotine dependence; R07.9 Chest pain, unspecified; Z85.21 Personal history of malignant neoplasm of larynx; D72.829 Elevated white blood cell count, unspecified; T38.0X5A Adverse effect of glucocorticoids and synthetic analogues, initial encounter; K59.00 Constipation, unspecified